=== PATIENT | female | born 2000 | race Caucasian/White ===

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

== ENCOUNTER 2021-06-14 17:10 | Outpatient (CLI) | payer MEDICAID, SELFPAY ==
[2021-06-17 08:09] LABS: Chlamydia By Nucleic Acid AMP Negative (Negative)
[2021-06-17 17:53] LABS: Gonococcus By Nucleic Acid AMP Negative (Negative)
== END 2021-06-14 23:59 | disposition short-term general hospital (02) ==
LOC: LABSPEC 17:11
PROVIDERS: PCP Nurse Practitioner Family; Visit Provider Obstetrics & Gynecology
DX: Z11.3 Encounter for screening for infections with a predominantly sexual mode of transmission (principal)
CPT/HCPCS: 87491; 87591

== ENCOUNTER 2021-06-28 12:00 | Outpatient (CLI) | payer MEDICAID, SELFPAY ==
--- NOTE | 2021-06-28 12:06 | RAD_ITS ---
STUDY: HYSTEROSALPINGOGRAM. REASON FOR EXAM: Female, 20 years old. INFERTILITY FLUOROSCOPY TIME (if supplied): ( 26 seconds ) minutes/seconds. 3 images were obtained. TECHNIQUE: The hysterosalpingogram was performed by the senior sales assistant. Imaging was provided. COMPARISON: None. FINDINGS: The uterus is unremarkable. Both fallopian tubes are widely patent with free spill. RAD/Salpingogram IMPRESSION: The fallopian tubes are widely patent with free spill. Electronically Signed: Luis Angel Renae MD at 14:45 EST ,
== END 2021-06-28 23:59 | disposition home or self-care (01) ==
LOC: RAD 12:05
PROVIDERS: PCP Nurse Practitioner Family; Referring Provider Obstetrics & Gynecology; Visit Provider Obstetrics & Gynecology
DX: Z31.41 Encounter for fertility testing (principal)
CPT/HCPCS: 58340; 74740; Q9967

== ENCOUNTER 2023-04-20 21:34 | Emergency (ER) | payer MEDICAID, SELFPAY ==
[2023-04-20 21:35] VITALS: BP 134/81; PULSE 123; RESP 16; TEMP 36; BMI 27.8
[2023-04-20 21:38] VITALS: BP 134/81; PULSE 123; RESP 16; TEMP 36
--- NOTE | 2023-04-20 22:17 | EDS_ITS ---
HPI HPI - GI History of Present Illness Chief Complaint: Abd Pain Informant: patient Abdominal Pain/Flank Pain Onset: Hours (1-2) Context: Gradual Onset Timing: Continuous Quality: Aching and Sharp Current Severity: Moderate Maximum Severity: Moderate Worsened by: Food Relieved by: Nothing Nausea/Vomiting/Emesis GI Symptom: Negative for Nausea or Vomiting Diarrhea/Melena/Hematochezia GI Symptom: Negative for Diarrhea, Melena or Hematochezia Associated Symptoms Associated Symptoms: Negative for Dysuria, Hematuria or Urgency Narrative Narrative: 22-year-old female states she is around 17 weeks and she was just sitting there when she started getting left upper quadrant pain and came into the hospital right away. She ate first, seem to get a little worse so she stopped eating. No nausea or vomiting. Radiates into her epigastrium not her back or her chest, she denies any pleuritic symptoms, cough recently, fevers or chills, dyspnea or chest discomfort. Normal urination, normal bowel movements recently, no prior abdominal surgeries. No vaginal bleeding. PFSH PFS Medical History Bulimia Depression Home Medications NK 04/20/23 [History Last Taken Unknown] Allergy/AdvReac Type Severity Reaction Status Date / Time sulfamethoxazole Allergy Vomiting Verified 04/20/23 21:34 [From Bactrim] trimethoprim [From Bactrim] Allergy Vomiting Verified 04/20/23 21:34 Social History Smoking Status: Current some day smoker tobacco type: e-cigarettes ROS ROS ED Constitutional Constitutional ED: Denies chills or fever(s) Eyes Eyes: Denies change in vision or diplopia ENT ENT ED: Denies rhinorrhea or sore throat Cardiovascular Cardiovascular: Denies chest pain or palpitations Respiratory/Chest Respiratory/Chest: Denies cough or dyspnea Gastrointestinal Gastrointestinal: Reports abdominal pain; Denies diarrhea, nausea or vomiting Genitourinary Genitourinary ED: Denies dysuria or hematuria Musculoskeletal Musculoskeletal: Denies back pain or neck pain Integumentary Denies abscess or rash Neurologic Neurologic: Denies headache(s), paresthesias or weakness Psychiatric Psychiatric: Denies anxiety or suicidal thoughts EXAM Physical Exam Const Vital Signs: 04/20/23 21:35 04/20/23 21:38 Temperature 96.8 F L 96.8 F L Temperature Source Temporal Temporal Pulse Rate 123 H 123 H Respiratory Rate 16 16 Blood Pressure 134/81 H 134/81 H Blood Pressure Mean 98 98 Positive well nourished and well developed Constitutional Narrative: Well-appearing in no distress General Appearance ED: well developed and NAD HEENT Reports moist mucous membranes normocephalic and atraumatic Eyes PERRL and EOMs intact bilaterally Neck full ROM and supple Resp normal respiratory effort and clear to auscultation bilaterally Cardio regular rate, regular rhythm and no murmurs Cardio Narrative: Mild tachycardia GI non-distended GI Narrative: Mildly tender epigastrium and medial aspect of the left upper quadrant no guarding or rebound tenderness no pulsatile mass no other areas of abdominal tenderness. Mild pelvic distention below the umbilicus compatible with early second trimester Auscultation: normoactive bowel sounds Palpation: soft Back/Spine no CVA tenderness General Back: other FROM Extremity normal to inspection General Extremety ED: Negative for edema, pulses abnormal or tenderness General Extremity: Negative for edema or pulses abnormal Neuro oriented x3, CN's II-XII intact bilaterally and no sensory deficits noted Sensorium / Orientation: awake and alert Motor Exam: strength 5/5 throughout Skin no rashes or lesions noted and no wounds MDM MDM MDM Narrative Medical decision making narrative: Differential includes stomach as well as sigmoid colon etiologies. Given second trimester , acid related issues much more likely. While running blood test she was given Mylanta and a dose of dicyclomine. She states on reevaluation that the discomfort is completely gone she feels much better. The labs are unremarkable. She has a mild leukocytosis which is normal during the stage . Patient reassured, advised she can take Pepcid or Mylanta as needed during safely and follow-up with her doctor as needed. She is comfortable with that plan. Lab Data Attestation: I reviewed the patient's lab results. Labs: Laboratory Results - last 24 hr 04/20/23 22:35 WBC 12.5 H RBC 3.15 L Hgb 9.9 L Hct 28.5 L MCV 90.5 MCH 31.4 MCHC 34.7 RDW Std Deviation 42.5 RDW Coeff of Atilio 13.0 Plt Count 260 MPV 9.5 Immature Gran % (Auto) 0.200 Neut % (Auto) 65.9 Lymph % (Auto) 26.6 [place] % (Auto) 6.5 Eos % (Auto) 0.6 Baso % (Auto) 0.2 Absolute Neuts (auto) 8.2 H Absolute Lymphs (auto) 3.32 Nucleated RBC % 0 Sodium 138 Potassium 3.4 L Chloride 109 H Carbon Dioxide 25.0 Anion Gap 4 L BUN 9 Creatinine 0.45 L Estim Creat Clear Calc 174.96 Est GFR (MDRD) Af Amer 220 Est GFR (MDRD) Non-Af 181 BUN/Creatinine Ratio 19.9 Glucose 95 Calcium 8.3 L Total Bilirubin 0.30 AST 13 L ALT 18 Alkaline Phosphatase 44 L Total Protein 6.2 L Albumin 2.7 L Globulin 3.5 Albumin/Globulin Ratio 0.8 L Lipase 22 Discharge Plan Triage Chief Complaint: Abd Pain ED Provider: Orestes Lee Dx/Rx/DC Orders Clinical Impression: Dyspepsia, Second trimester Instructions: Understanding Functional Dyspepsia Prescriptions: No Action NK Primary Care Provider: Kenya Mitchell NP Referrals: Kenya Mitchell NP, [facility] CRANBERRY-C [Primary Care Provider] - As Needed Activity Restrictions/Additional Instructions: May safely take Pepcid and/or Mylanta during if needed Disposition Disposition: Home, Self Care
[2023-04-20] MEDS: Dicyclomine 10 MG Capsule 20 MG PO (22:33)
[2023-04-20] MEDS: Mag Hydrox/Al Hydrox/Simeth 30 ML UDC PO (22:33)
[2023-04-20 22:40] LABS: Absolute Lymphocyte Count 3.32 X10^3/uL (0.83-4.51); Absolute Neutrophil Count 8.2 X10^3/uL (2.0-7.7); Basophil# 0.03 X10^3/uL; Basophil% 0.2 % (0-1); Eosinophil# 0.07 X10^3/uL; Eosinophils% 0.6 % (0-5); Hematocrit 28.5 % (37-47); Hemoglobin 9.9 g/dL (12.0-15.0); Lymphocyte # 3.32 X10^3/ul (0.83-4.51); Lymphocyte % 26.6 % (19-41); Mean Corp Hgb Conc 34.7 g/dL (32-36); Mean Corpuscular Hgb 31.4 pg (27.0-32.0); Mean Corpuscular Volume 90.5 fL (81-99); Mean Platelet Vol. 9.5 fl (6.2-12.0); Monocyte# 0.81 X10^3/uL; Monocyte% 6.5 % (0-10); NRBC Flagged by Analyzer 0 % (0-5); Neutrophil # 8.23 X10^3/uL (2.7-7.7); Neutrophil % 65.9 % (47-70); Platelet Count 260 K/mm3 (150-450); RBC Distribution Width SD 42.5 fl (35.1-43.9); Red Blood Count 3.15 M/mm3 (4.2-5.4); White Blood Count 12.5 K/mm3 (4.4-11.0)
[2023-04-20 22:56] LABS: ALB/GLOB Ratio 0.8 RATIO (0.9-2.4); AST(SGOT) 13 U/L (15-37); Alanine Aminotransfer ALT/SGPT 18 U/L (13-56); Albumin, Serum 2.7 g/dL (3.2-5.0); Alkaline Phosphatase 44 U/L (45-117); Anion Gap 4 (5-15); BUN 9 mg/dL (7-18); BUN/Creat Ratio 19.9 RATIO (10-20); Calcium,Total 8.3 mg/dL (8.5-10.1); Chloride 109 mmol/L (98-107); Creatinine, Serum 0.45 mg/dL (0.55-1.02); EST Glomerular Filtration Rate 181 mL/min (>60); Est Glom Filt Rate - Afr Amer 220 mL/min (>60); Estimated Creatinine Clearance 174.96 ml/min; Globulin 3.5 g/dL (2.2-4.2); Glucose 95 mg/dL (74-106); Lipase 22 U/L (13-75); Potassium 3.4 mmol/L (3.5-5.1); Protein, Total 6.2 g/dL (6.4-8.2); Sodium Level 138 mmol/L (136-145)
== END 2023-04-20 23:54 | disposition home or self-care (01) ==
PROVIDERS: Emergency Provider Emergency Medicine; PCP Nurse Practitioner Family; Visit Provider Emergency Medicine
DX: O99.891 Other specified diseases and conditions complicating pregnancy (principal); O99.332 Smoking (tobacco) complicating pregnancy, second trimester; F17.290 Nicotine dependence, other tobacco product, uncomplicated; Z3A.17 17 weeks gestation of pregnancy; R10.13 Epigastric pain
CPT/HCPCS: 80053; 83690; 85025; 99283

== ENCOUNTER 2023-06-29 14:09 | Emergency (ER) | payer OTHER, MEDICAID, SELFPAY ==
[2023-06-29 14:11] VITALS: BP 136/81; PULSE 105; RESP 18; TEMP 36.5; O2SAT 99; BMI 28.8
--- NOTE | 2023-06-29 14:29 | US_ITS ---
STUDY: RENAL ULTRASOUND - COMPLETE REASON FOR EXAM: Female, 22 years old. hematuria, left flank pain, TECHNIQUE: Ultrasound evaluation of the kidneys was performed with real-time and static manning-scale imaging. COMPARISON: None. FINDINGS: RIGHT KIDNEY: Normal location of the right kidney, which is normal in size. The right kidney measures 10.4 cm. There is a normal cortex of the right kidney. The renal cortex measures 2 cm. There is no right renal mass or cyst. There are no right renal calculi. Moderate hydronephrosis. DISTAL RIGHT URETER: There is non-visualization of the distal right ureter. There is no demonstrated right ureterovesical junction calculus. There is a visualized right ureteral jet. LEFT KIDNEY: Normal location of the left kidney, which is normal in size. The left kidney measures 11.9 cm. There is a normal cortex of the left kidney. The renal cortex measures 2.7 cm. There is no left renal mass or cyst. There are no left renal calculi. There is no left hydronephrosis. DISTAL LEFT URETER: There is non-visualization of the distal left ureter. There is no demonstrated left ureterovesical junction calculus. There is a visualized left ureteral jet. BLADDER: The distended urinary bladder has a volume of 265 ml. There is a normal wall thickness of the distended urinary bladder. There is no demonstrated mass within the urinary bladder. There are no demonstrated bladder calculi. US/Kidney and Bladder IMPRESSION: Moderate left greater than right hydronephrosis Electronically Signed: Isacc Vinson MD at 16:45 EST ,
--- NOTE | 2023-06-29 14:47 | EDS_ITS ---
HPI History of Present Illness Chief Complaint: Complaint Informant: patient Narrative Narrative: Patient is 27 weeks , states yesterday she was having some mild lower diffuse abdominal cramping/aching and then a small amount of hematuria but no other urinary symptoms. Overnight she started having sudden onset of pain in her left flank and low back. She was seen at her [facility] [facility] [facility] today and started on Macrobid and Azo. She took the Azo and states she had temporary relief of her pain but then it came back less than an hour after taking it and has been very severe ever since and somewhat colicky. Some nausea but no vomiting. No fevers or chills. [facility] Medical History Bulimia Depression Home Medications hydrocodone-acetaminophen 5-325mg 5mg-325mg 1 tab PO Q6H PRN PRN Pain 4 days #16 TABLETS 06/29/23 [Rx Last Taken Unknown] Allergy/AdvReac Type Severity Reaction Status Date / Time sulfamethoxazole Allergy Vomiting Verified 06/29/23 14:11 [From Bactrim] trimethoprim [From Bactrim] Allergy Vomiting Verified 06/29/23 14:11 Social History Smoking Status: Current some day smoker tobacco type: e-cigarettes ROS ROS ED Constitutional Constitutional ED: Denies chills or fever(s) Eyes Eyes: Denies change in vision or diplopia ENT ENT ED: Denies rhinorrhea or sore throat Cardiovascular Cardiovascular: Denies chest pain or palpitations Respiratory/Chest Respiratory/Chest: Denies cough or dyspnea Gastrointestinal Gastrointestinal: Reports abdominal pain and nausea; Denies diarrhea or vomiting Genitourinary Genitourinary ED: Reports hematuria; Denies dysuria, urinary frequency or urinary urgency Musculoskeletal Musculoskeletal: Reports back pain; Denies neck pain Integumentary Denies abscess or rash Neurologic Neurologic: Denies headache(s), paresthesias or weakness Psychiatric Psychiatric: Denies anxiety or suicidal thoughts EXAM Physical Exam Const Vital Signs: 06/29/23 14:11 Temperature 97.7 F L Temperature Source Temporal Pulse Rate 105 H Respiratory Rate 18 Blood Pressure 136/81 H Blood Pressure Mean 99 Pulse Ox 99 Oxygen Delivery Method Room Air Positive well nourished and well developed General Appearance ED: well developed and NAD HEENT Reports moist mucous membranes normocephalic and atraumatic Eyes PERRL and EOMs intact bilaterally Neck full ROM and supple Resp normal respiratory effort and clear to auscultation bilaterally Cardio regular rate, regular rhythm and no murmurs GI non-distended GI Narrative: Mild diffuse pelvic tenderness. Abdomen distended above the umbilicus consistent with early third trimester . This area of her abdomen is benign and nontender. There is no guarding or rebound tenderness even in the pelvis. Auscultation: normoactive bowel sounds Palpation: soft Back/Spine no CVA tenderness General Back: other FROM Extremity normal to inspection General Extremety ED: Negative for edema, pulses abnormal or tenderness General Extremity: Negative for edema or pulses abnormal Neuro oriented x3, CN's II-XII intact bilaterally and no sensory deficits noted Sensorium / Orientation: awake and alert Motor Exam: strength 5/5 throughout Psych Mood & Affect: anxious Skin no rashes or lesions noted and no wounds MDM MDM MDM Narrative Medical decision making narrative: Her urine is bright orange, consistent with someone who just took Pyridium. We discussed medications to treat her symptoms she was okay with IV fluids, Zofran, morphine. We discussed the pros and cons of that which I think are minimal. Labs and an ultrasound of the bladder and kidneys was obtained. Differential includes infection as well as stone. Patient did feel better after the medications. She is a leukocytosis and normal renal function, I reviewed the ultrasound images and the result which I agree with, consistent with hydronephrosis on the left. Differential still includes infection and stone. I was not able to get an accurate urinalysis here, since patient already had a urinalysis as an outpatient and was placed on Azo and her urine is orange, and a culture is already sent. Discussed with Manjula Corea who is on-call for [facility] who the patient actually saw today. She said that the urinalysis they did showed some protein, large blood, and was otherwise negative. They sent it for culture. Given this, I am more consistent for a kidney stone that I am for pyelonephritis. I discussed with Dr. Wyman was on- call for urology. She agrees, and recommends patient follow-up with her for at least a repeat ultrasound of the kidneys even if her pain resolves. In meantime sending her home with a prescription for pain medication which I am advising her to use as sparingly as possible, she can use Tylenol in addition given appropr iate instructions there as well as for straining her urine. I would continue the Macrobid since she already started it but I would not necessarily change it. She was empirically already given Rocephin here prior to knowing that she had a negative urinalysis. Lab Data Attestation: I reviewed the patient's lab results. Labs: Laboratory Results - last 24 hr 06/29/23 15:00 WBC 15.1 H RBC 3.41 L Hgb 10.4 L Hct 31.2 L MCV 91.5 MCH 30.5 MCHC 33.3 RDW Std Deviation 41.3 RDW Coeff of Atilio 12.5 Plt Count 289 MPV 9.3 Immature Gran % (Auto) 0.500 Neut % (Auto) 76.5 H Lymph % (Auto) 16.2 L [place] % (Auto) 6.1 Eos % (Auto) 0.5 Baso % (Auto) 0.2 Absolute Neuts (auto) 11.5 H Absolute Lymphs (auto) 2.44 Nucleated RBC % 0 Sodium 139 Potassium 3.3 L Chloride 111 H Carbon Dioxide 22.0 Anion Gap 6 BUN 11 Creatinine 0.53 L Estim Creat Clear Calc 171.22 Est GFR (MDRD) Af Amer 183 Est GFR (MDRD) Non-Af 151 BUN/Creatinine Ratio 20.8 H Glucose 96 Calcium 8.3 L Radiography Diagnostic Testing: Clinical Impression(s) from Imaging Studies Renal Ultrasound 06/29/23 14:29 IMPRESSION: Moderate left greater than right hydronephrosis Electronically Signed: Isacc Vinson MD at 16:45 EST , Management Discussion w/another healthcare provider: Pillow Filler ([employer], urology) Discharge Plan Triage Chief Complaint: Complaint ED Provider: Orestes Lee Dx/Rx/DC Orders Clinical Impression: Microscopic hematuria, Third trimester , Renal colic on left side Instructions: ED Kidney Stone with Pain Prescriptions: New hydrocodone-acetaminophen [hydrocodone-acetaminophen] 5-325 mg tablet 1 tab PO Q6H PRN PRN (Reason: Pain) 4 Days Qty: 16 0RF Primary Care Provider: Kenya Mitchell NP Referrals: Dennise Infante MD [Med Staff - Active Staff] - 1-2 Weeks Kenya Mitchell NP, [employer] [Primary Care Provider] - Activity Restrictions/Additional Instructions: You may use the hydrocodone/acetaminophen or plain acetaminophen, but watch the dosing and make sure you do not take more than 4000 mg of acetaminophen in each 24-hour period. Avoid ibuprofen given your stage of . Disposition Disposition: Home, Self Care
[2023-06-29] MEDS: Morphine 4 MG/ML Syringe IV (14:48)
[2023-06-29] MEDS: 0.9% Normal Saline (1000mL) 1,000 ML 1000 ML IV (14:48)
[2023-06-29] MEDS: Ondansetron 4 MG/2 ML Vial IV (14:48)
[2023-06-29 15:13] LABS: Absolute Lymphocyte Count 2.44 X10^3/uL (0.83-4.51); Absolute Neutrophil Count 11.5 X10^3/uL (2.0-7.7); Basophil# 0.03 X10^3/uL; Basophil% 0.2 % (0-1); Eosinophil# 0.08 X10^3/uL; Eosinophils% 0.5 % (0-5); Hematocrit 31.2 % (37-47); Hemoglobin 10.4 g/dL (12.0-15.0); Lymphocyte # 2.44 X10^3/ul (0.83-4.51); Lymphocyte % 16.2 % (19-41); Mean Corp Hgb Conc 33.3 g/dL (32-36); Mean Corpuscular Hgb 30.5 pg (27.0-32.0); Mean Corpuscular Volume 91.5 fL (81-99); Mean Platelet Vol. 9.3 fl (6.2-12.0); Monocyte# 0.92 X10^3/uL; Monocyte% 6.1 % (0-10); NRBC Flagged by Analyzer 0 % (0-5); Neutrophil # 11.52 X10^3/uL (2.7-7.7); Neutrophil % 76.5 % (47-70); Platelet Count 289 K/mm3 (150-450); RBC Distribution Width CV 12.5 % (11.6-14.6); RBC Distribution Width SD 41.3 fl (35.1-43.9); Red Blood Count 3.41 M/mm3 (4.2-5.4); White Blood Count 15.1 K/mm3 (4.4-11.0)
[2023-06-29 15:29] LABS: Anion Gap 6 (5-15); BUN 11 mg/dL (7-18); BUN/Creat Ratio 20.8 RATIO (10-20); Calcium,Total 8.3 mg/dL (8.5-10.1); Chloride 111 mmol/L (98-107); Creatinine, Serum 0.53 mg/dL (0.55-1.02); EST Glomerular Filtration Rate 151 mL/min (>60); Est Glom Filt Rate - Afr Amer 183 mL/min (>60); Estimated Creatinine Clearance 171.22 ml/min; Glucose 96 mg/dL (74-106); Potassium 3.3 mmol/L (3.5-5.1); Sodium Level 139 mmol/L (136-145)
[2023-06-29 17:00] VITALS: RESP 18
--- OUTSIDE RECORDS SUMMARY | 2023-06-29 17:18 | XMS RPT_ITS | CCD ---
Author Name Unknown Address [address] [place] [address] Organization [facility] Care Team Providers Care Team Physician Name Role Phone TAWANA STINSON Unavailable Unavailable REFERRED, SELF Unavailable Unavailable NO PRIMARY CARE, MD Unavailable Unavailable TEE JEFFREY Unavailable Unavailable NO PRIMARY CARE, Unavailable Unavailable NO PRIMARY CARE, MD Unavailable Unavailable Unavailable Primary Care Provider Unavailabl e KENYA MITCHELL CNP Consulting Unavailable BENNIE COLLIER Admitting Unavailable BENNIE COLLIER Primary Care Unavailable BENNIE COLLIER Attending Unavailable KENYA MITCHELL CNP Referring Unavailable PROVIDER, UNKNOWN Consulting Unavailable PROVIDER, UNKNOWN Consulting Unavailable KENYA MITCHELL CNP Consulting Unavailable KENYA MITCHELL CNP Attending Unavailable KENYA MITCHELL CNP Admitting Unavailable KENYA MITCHELL CNP Primary Care Unavailable PROVIDER, UNKNOWN Consulting Unavailable PROVIDER, UNKNOWN Consulting Unavailable KENYA MITCHELL CNP Consulting Unavailable KENYA MITCHELL CNP Attending Unavailable KENYA MITCHELL CNP Admitting Unavailable KENYA MITCHELL CNP Primary Care Unavailable PROVIDER, UNKNOWN Consulting Unavailable PROVIDER, UNKNOWN Consulting Unavailable KENYA MITCHELL CNP Consulting Unavailable JENNIFER REINA MD Admitting Unavailable JENNIFER REINA MD Primary Care Unavailable JENNIFER REINA MD Attending Unavailable KENYA MITCHELL CNP Referring Unavailable PROVIDER, UNKNOWN Consulting Unavailable PROVIDER, UNKNOWN Consulting Unavailable KENYA MITCHELL CNP Consulting Unavailable BENNIE COLLIER Admitting Unavailable LORI COLLIERN Gale Primary Care Unavailable LORI COLLIERN Gale Attending Unavailable KENYA MITCHELL CNP Referring Unavailable PROVIDER, UNKNOWN Consulting Unavailable PROVIDER, UNKNOWN Consulting Unavailable WAYNE GREER Attending Unavailable WAYNE GREER Attending Unavailable WAYNE GREER Attending Unavailable DEAN PATTERSON Referring Unavailable DEAN PATTERSON Attending Unavailable WAYNE GREER Attending Unavailable WAYNE GREER Referring Unavailable KAELYN RAMOS Referring Unavailable WAYNE GREER Attending Unavailable DEAN PATTERSON Attending Unavailable DEAN PATTERSON Attending Unavailable WAYNE GREER Referring Unavailable DEAN PATTERSON Attending Unavailable WAYNE GREER Referring Unavailable DEAN PATTERSON Referring Unavailable WAYNE GREER Attending Unavailable WAYNE GREER Referring Unavailable WAYNE GREER Attending Unavailable WAYNE GREER Attending Unavailable DEAN PATTERSON Attending Unavailable Allergies Allergy Classification Reported Allergen(s) Allergy Type Date of Onset Reaction(s) Facility (20 sources) sulfamethoxazole / trimethoprim; Translations: [SULFAMETHOXAZOLE-TR IMETHOPRIM] Drug Allergy 8 [facility] Repository (19 sources) pork allergenic extract; Translations: [PORK DERIVED (PORCINE)] Drug Allergy 3 [facility] Work Phone: (19 sources) Lavender; Translations: [LAVENDER] Drug Allergy 3 [facility] Work Phone: (1 source) Sulfamethoxazole / Trimethoprim Drug Allergy [facility] Repository Medications Current Medications Medication Drug Class(es) Dates Sig (Normalized) Sig (Original) doxycycline monohydrate 100 mg oral capsule (2 sources) Tetracycline-cla ss Drug Start: 11-17-2022 End: 11-17-2022 take 2 capsules by mouth once doxycycline monohydrate (MONODOX) 100 mg capsule Indications: Incomplete spontaneous without complication Take 2 capsules by mouth one time only for 1 dose. 2 capsule 0 11/17/2022 11/17/2022 Active Completed/Discontinued Medications Medication Drug Class(es) Dates Sig (Normalized) Sig (Original) acetaminophen 500 mg oral tablet (3 sources) Start: 07-28-2022 End: 11-09-2022 take 2 tablets by mouth every six hours as needed acetaminophen (TYLENOL EXTRA STRENGTH) 500 mg tablet Take 2 tablets by mouth every 6 hours as needed for pain. FOR PAIN. 60 tablet 1 07/28/2022 11/09/2022 Discontinued Problems Active Problems Problem Classification Problem Date Documented Date Episodic/Chronic Allergic reactions (1 source) Allergy status to other drugs, medicaments and biological substances status; Translations: [Allergy status to other drugs, medicaments and biological substances] Onset: 11-11-2022 Episodic Fluid and electrolyte disorders (1 source) Hypokalemia; Translations: [Hypokalemia] Onset: 11-11-2022 Episodic Other complications of (3 sources) Missed miscarriage; Translations: [Missed ] Episodic Other complications of (9 sources) H/O: miscarriage; Translations: [Supervision of with other poor reproductive or obstetric history, unspecified trimester] Onset: 11-09-2022 Episodic Other complications of (2 sources) Recurrent miscarriage; Translations: [ care for patient with recurrent loss, unspecified trimester] 02-26-2023 Episodic Other complications of (1 source) RhD negative; Translations: [Other specified related conditions, unspecified trimester] Onset: 03-27-2023 03-27-2023 Episodic Other and delivery including normal (2 sources) Normal ; Translations: [Encounter for supervision of other normal , first trimester] Onset: 05-03-2023 03-26-2023 Episodic Other screening for suspected conditions (not mental disorders or infectious disease) (4 sources) Patient encounter status; Translations: [Encounter for screening, unspecified] Onset: 03-26-2023 03-26-2023 Episodic Previous (20 sources) ; Translations: [Maternal care for unspecified type scar from previous delivery] Onset: 07-06-2022 Episodic Residual codes; unclassified (1 source) Gestation period, 8 weeks; Translations: [8 weeks gestation of ] Episodic Residual codes; unclassified (2 sources) Gestation period, 7 weeks; Translations: [Less than 8 weeks gestation of ] Episodic Residual codes; unclassified (1 source) Less than 8 weeks gestation of ; Translations: [Less than 8 weeks gestation of ] Onset: 11-11-2022 Episodic Residual codes; unclassified (1 source) Personal history of other complications of , childbirth and the puerperium; Translations: [Personal history of other complications of , childbirth and the puerperium] Onset: 2022 Episodic Residual codes; unclassified (1 source) Gestation period, 13 weeks; Translations: [13 weeks gestation of ] 03-26-2023 Episodic Residual codes; unclassified (1 source) Gestation period, 18 weeks; Translations: [18 weeks gestation of ] 05-03-2023 Episodic Residual codes; unclassified (1 source) 13 weeks gestation of ; Translations: [13 weeks gestation of ] Onset: 03-26-2023 Episodic Past or Other Problems Problem Classification Problem Date Documented Da te Episodic/Chronic Hemorrhage during ; abruptio placenta; placenta previa (9 sources) Antepartum hemorrhage; Translations: [Hemorrhage in early , unspecified] Onset: 2022 Episodic Other complications of (1 source) care for patient with recurrent loss, unspecified trimester; Translations: [Previous recurrent miscarriages affecting , antepartum] Onset: 02-26-2023 Episodic Other complications of (1 source) with inconclusive viability, not applicable or unspecified; Translations: [ with inconclusive viability, single or unspecified fetus] Onset: 07-07-2022 Episodic Residual codes; unclassified (20 sources) History of clinical finding in subject; Translations: [Personal history of other specified conditions] Onset: 07-06-2022 Episodic Screening and history of mental health and substance abuse codes (20 sources) H/O: depression; Translations: [Personal history of other mental and behavioral disorders] Onset: 07-06-2022 Episodic Spontaneous (7 sources) with abortive outcome; Translations: [Incomplete spontaneous without complication] Onset: 07-17-2022 Episodic Results Test Name Value Interpretation Reference Range Facil ity Vital Signs Date Time Vital Sign Value Performing Clinician Brad hawthorne 05-03-2023 13:53-0500 Body weight 74.39 kg Ob Ultrasound Work Phone: [facility] 03-26-2023 14:27-0500 Body weight 72.58 kg Dean Patterson MD Work Phone: [facility] 03-26-2023 14:27-0500 Diastolic blood pressure 60 mm[Hg] Dean Patterson MD Work Phone: [facility] 03-26-2023 14:27-0500 Systolic blood pressure 100 mm[Hg] Dean Patterson MD Work Phone: [facility] 03-06-2023 11:18-0400 Body height 165.1 cm Wayne Greer MD Work Phone: [facility] 03-06-2023 11:18-0400 Body weight 70.58 kg Wayne Greer MD Work Phone: [facility] 03-06-2023 11:18-0400 Diastolic blood pressure 62 mm[Hg] Wayne Greer MD Work Phone: [facility] 03-06-2023 11:18-0400 Systolic blood pressure 100 mm[Hg] Wayne Greer MD Work Phone: [facility] 12-01-2022 10:40-0400 Body weight 70.31 kg Dean Patterson MD Work Phone: [facility] 12-01-2022 10:40-0400 Diastolic blood pressure 70 mm[Hg] Dean Patterson MD Work Phone: [facility] 12-01-2022 10:40-0400 Systolic blood pressure 108 mm[Hg] Dean Patterson MD Work Phone: [facility] 11-20-2022 08:44-0400 Body weight 70.76 kg Dean Patterson MD Work Phone: [facility] 11-20-2022 08:44-0400 Diastolic blood pressure 70 mm[Hg] Dean Patterson MD Work Phone: [facility] 11-20-2022 08:44-0400 Heart rate 80 /min Dean Patterson MD Work Phone: [facility] 11-20-2022 08:44-0400 Respiratory rate 16 /min Dean Patterson MD Work Phone: [facility] 11-20-2022 08:44-0400 SaO2% (BldA) [Mass fraction] 100 % Dean Patterson MD Work Phone: [facility] 11-20-2022 08:44-0400 Systolic blood pressure 100 mm[Hg] Dean Patterson MD Work Phone: [facility] 11-14-2022 15:30-0400 Body weight 70.76 kg Wayne Greer MD Work Phone: [facility] 11-14-2022 15:30-0400 Diastolic blood pressure 74 mm[Hg] Wayne Greer MD Work Phone: [facility] 11-14-2022 15:30-0400 Systolic blood pressure 122 mm[Hg] Wayne Greer MD Work Phone: [facility] 07-28-2022 16:25-0500 Diastolic blood pressure 64 mm[Hg] Wayne Greer MD Work Phone: [facility] 07-28-2022 16:25-0500 Heart rate 70 /min Wayne Greer MD Work Phone: [facility] 07-28-2022 16:25-0500 Respiratory rate 16 /min Wayne Greer MD Work Phone: [facility] 07-28-2022 16:25-0500 SaO2% (BldA) [Mass fraction] 98 % Wayne Greer MD Work Phone: [facility] 07-28-2022 16:25-0500 Systolic blood pressure 98 mm[Hg] Wayne Greer MD Work Phone: [facility] 07-28-2022 13:11-0500 Body weight 70.03 kg Wayne Greer MD Work Phone: [facility] 07-17-2022 14:16-0500 Body weight 70.31 kg Wayne Greer MD Work Phone: [facility] 07-17-2022 14:16-0500 Diastolic blood pressure 72 mm[Hg] Wayne Greer MD Work Phone: [facility] 07-17-2022 14:16-0500 Systolic blood pressure 118 mm[Hg] Wayne Greer MD Work Phone: [facility] 07-11-2022 14:45-0500 Body weight 70.49 kg Wayne Greer MD Work Phone: [facility] 07-11-2022 14:45-0500 Diastolic blood pressure 62 mm[Hg] Wayne Greer MD Work Phone: [facility] 07-11-2022 14:45-0500 Systolic blood pressure 114 mm[Hg] Wayne Greer MD Work Phone: [facility] 07-07-2022 [id number] Body height 165.1 cm Wayne Greer MD Work Phone: [facility] 07-07-2022 [id number] Body weight 68.67 kg Wayne Greer MD Work Phone: [facility] 07-07-2022 14:11-0500 Diastolic blood pressure 60 mm[Hg] Wayne Greer MD Work Phone: [facility] 07-07-2022 14:11-0500 Systolic blood pressure 102 mm[Hg] Wayne Greer MD Work Phone: [facility] Encounters Encounter Date Encounter Type Care Provider Facility Start: 05-31-2023 End: 05-31-2023 ambulatory DEAN PATTERSON Facility:[facility] Start: 05-03-2023 End: 05-03-2023 ambulatory DEAN PATTERSON Facility:[facility] Start: 05-03-2023 End: 05-03-2023 Patient 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 Jessica Ultrasound Work Phone: OB/Gynecology Procedures Date Procedure Procedure Detail Performing Clinician Start: 05-03-2023 Us preg uterus after 1st trimest 05/21 gestation Dean Patterson MD Work Phone: Start: 03-26-2023 Antibody screen WAYNE GREER Plan of Treatment Date Care Activity Detail Author Start: 07-07-2025 PAP TESTING PAP TESTING [facility] Start: 07-07-2025 Screening for malign ant neoplasm of cervix Pap Testing [facility] Start: 08-31-2024 Urine microalbumin profile DTaP,Tdap,Td Vaccine (7 - Td or Tdap) [facility] Start: 03-06-2024 Chlamydia Screening (18-24) Chlamydia Screening (18-24) [facility] Start: 03-06-2024 GC (Gonorrhea) Scree leyla (18-24) GC (Gonorrhea) Screening (18-24) [facility] Start: 03-06-2024 Screening for Chlamy nancy trachomatis Chlamydia Screening (18) [facility] Start: 03-26-2023 End: 06-25-2023 Chromosome 21 trisomy [Presence] in Blood or Tissue by Cytogen[employer] [facility] Work Phone: Immunizations Immunization Date Immunization Notes Care Provider Delmi salcedo 04-24-2009 influenza virus vacc ine, unspecified formulation Nurse Wstr Work Phone: [facility] 03-15-2005 diphtheria, tetanus toxoids and acellular pertussis vaccine Nurse Wstr Work Phone: [facility] 03-15-2005 measles, mumps and rubella virus vaccine Nurse Wstr Work Phone: [facility] 03-15-2005 poliovirus vaccine, inactivated Nurse Wstr Work Phone: [facility] Payers Date Payer Category Payer Unknown MMO MMO [employer] PPO [id number] 2022-Present [phone] [address] [place] [address] PPO [id number] 2022 Unknown [id number] 2022 Medicaid [id number] 2019 Medicaid [id number] 2019 Unknown [id number] 1999 Unknown [id number] 1999 Unknown [id number] 1999 Unknown [id number] Social History Date Type Detail Facility Start: 07-06-2022 End: 02-26-2023 Tobacco smoking status NHIS Ex-smoker [facility] Work Phone: End: 01-23-2023 History of tobacco use Current smoker [facility] Work Phone: End: 01-23-2023 History of tobacco use Cigarette Smoker [facility] Work Phone: Start: 07-06-2022 End: 02-26-2023 Tobacco use and exposure Smokeless tobacco non-user [facility] Work Phone: Start: 07-06-2022 End: 05-03-2023 Alcohol intake Ex-drinker (finding) [facility] Start: 07-06-2022 Education 15 [facility] Start: 07-06-2022 Alcohol Comment Occasionally [facility] Start: 05-24-2022 [facility] Start: 2000 Sex Assigned At Not on file [facility] Start: 11-09-2022 End: 12-01-2022 History of Social function [facility] Start: 11-09-2022 End: 12-01-2022 Tobacco use panel [facility] National Score (1-100), lower number is lower risk 99 [facility] Goals Date Patient Goal Desired Activity /State Personal health goal Clinical Notes 07-06-2022 to 03-26-2023 Quick Notes - Dean Patterson MD - 03/26/2023 2:40 PM ESTPatient InstructionsPatient Wayne Carey MD - 03/06/2023 11:10 AM LILLIANTClary Dailey RN - 02/26/2023 6:49 AM EDT Note Date & Type Note Facility 03-26-2023 Miscellaneous Notes Formattin g of this note might be different from the original. RR- VB No. LOF No. CTXS No. Movement: present. Other c/o: No. Medication list reviewed. Physical Exam See Flow Sheet Abd: soft, nontender, gravid Ext: edema: Trace A/P 13w2d Estimated Date of Delivery: 09/29/23 Labs: d/w her aneuploidy screening as screen only. She desires nIPT anatomy US ordered other PN labs today. Dean Patterson M.D. documented in this encounter [facility] 03-26-2023 Instructions Juany Aguilar Ma - 03/26/2023 2:26 PM EST SEQUENTIAL SCREENINGS The [facility] offers sequential screenings for women who are interested in screenings for chromosomal abnormalities and certain defects during a . The sequential screen combines ultrasound and blood tests to determine the risk of chromosomal abnormalities, including Down's Syndrome (Trisomy 21) and Trisomy 18, as well as open neural tube defects including spina bifida. Ultrasound examination is performed between 11 weeks and 13 weeks gestational age. Blood tests are drawn after the ultrasound and again later in the between 15 and 21 weeks gestational age. Please let your physician know if you are interested in this testing. It will require an appointment with our senior health physics technician. This is not an ultrasound performed by a physician in our office during a routine visit. SIGNS AND SYMPTOMS OF LABOR 1. Contractions every 10 minutes or more often 2. Clear, pink, or brownish fluid (water) leaking from vagina 3. Feeling that baby is pushing down, pressure 4. Low, dull backache 5. Cramps that feel like a period 6. Cramps with or without diarrhea If you notice any of the above symptoms, contact our office at [phone] and ask to speak with a nurse. After hours, you can call doctors registry at [phone] OR call [facility] at [phone] and ask to have the doctor salon manager paged. If you consider this an emergency, dial [phone] or go to your nearest emergency department. NEED HELP? Are you dealing with a violent or abusive relationship? Are you a victim of rape or sexual assult? Call [facility] ([place]) 24 hour Crisis Hotline: 152.416.1114 or 162-566-6745. MANUAL Your Guide to a Healthy manual is now on-line. Visit [email or web address]/[email or web address] [email or web address] to download your free copy documented in this encounter [facility] 03-06-2023 Note HNO ID: [id number] Author: Wayne Greer MD Service: ? Author Type: Physician Type: Progress Notes Filed: 03/06/2023 3:01 PM Note Text: Machine Umbrella Tipper offered: Patient declines. INITIAL OB ASSESSMENT OB Provider: Wayne Greer MD HPI: Caleb is a 22 year old White here to establish Obstetrical Care. Patient's last menstrual period was 11/15/2022 (approximate). from OB Dating Form. Cycles No menses since I Pass was unplanned but accepted-had wanted to wait more time after IPAS/miscarriage Complaints: None OB History T1 L1 SAB2 IAB0 Ectopic0 Multiple0 Live Births1 # 1 - Date: 07/03/18, Sex: Female, Weight: 7 lb 8 oz (3.402 kg), GA: 39w0d, Delivery: , Low Transverse, Apgar1: None, Apgar5: None, Living: Living, Comments: distress,500cc # 2 - Date: 07/07/22, Sex: None, Weight: None, GA: 6w4d, Delivery: MISSED AB, Apgar1: None, Apgar5: None, Living: None, Comments: in office IPAS on 07/28/22 # 3 - Date: 11/14/22, Sex: None, Weight: None, GA: 7w0d, Delivery: MISSED AB, Apgar1: None, Apgar5: None, Living: None, Comments: in office IPAS on 11/20/22 # 4 - Date: None, Sex: None, Weight: None, GA: None, Delivery: None, Apgar1: None, Apgar5: None, Living: None, Comments: None Previous history: Prior : yes x 1 History of 4th degree laceration: No History of shoulder dystocia: No History of Hypertensive disorders including pre-eclampsia, chronic hypertension or gestational hypertension: No History of gestational diabetes: No Patient's Risk Screening for delivery: Have you had a prior myers between 20w and 36w6d?: No MEDICAL/PSYCHOSOCIAL HISTORY: History of hemorrhage or bleeding concerns: No Thyroid Disease: No History of chronic hypertension: No History of pre-existing diabetes: No No results found for: ABORHD No weight on file for this encounter. History of abnormal pap: No Prior treatment for cervical dysplasia: none. History of STDs: None Tobacco use: Yes, vaping Caffeine use: Yes 1 cup a day of coffee Drug use: No Alcohol use: No Multivitamin with Folic acid: Yes Muslim or heritage: No Would refuse blood transfusion if medically necessary: No Are you currently employed? Yes, Occupation: [employer] Do you have any history of depression, anxiety, PTSD, eating disorders or other mood problems: Yes Do you have any safety concerns or history of traumatic events that you would like to discuss with your provider: No SDOH Screening: How often does this describe you? I don't have enough money to pay my bills: Never Within the past 12 months, have you worried that your food would run out before you had money to buy more: Never In the past 12 months, has lack of reliable transportation kept you from going to medical appointments or work, or from keeping things needed for daily living: Never In the past 12 months, have you had any concerns about having a place to live, or about the condition or quality of your housing: Never Are there any cultural or spiritual needs we should be aware of: No Depression/Anxiety Screening: denies symptoms of depression. OB Depression and Anxiety Screening- This Encounter (since 02/25/2023) None Genetic Screening: Partner present: No Patient verbalized knowledge of partner family health history: No Do you or your partner have any personal or family history of defects not previously discussed: No Do you have history of a complicated by anomaly, genetic condition, or demise: No OB Depression and Anxiety Screening- This Encounter (since 03/05/2023) None ACOG Recommended Screening Screening for early gestational diabetes testing: Criteria for early testing requires elevated BMI plus one other risk factor: BMI 25.89 kg/(m2) (risk factor if > than 25 or 23 in Americans) Additional risk factors: None She does not meet ACOG criteria for early gestational DM screening. 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 [facility] 03-06-2023 Instructions Eulalia Jasso MA - 03/06/2023 11:11 AM EDT Please select the following link to access the [facility] [facility] Your Guide to a Healthy . [email or web address] documented in this encounter [facility] 03-06-2023 History of Presen t illness Narrative Machine Umbrella Tipper offered: Patient declines. INITIAL OB ASSESSMENT OB Provider: Wayne Greer MD HPI: Caleb is a 22 year old White here to establish Obstetrical Care. Patient's last menstrual period was 11/15/2022 (approximate). from OB Dating Form. Cycles No menses since I Pass was unplanned but accepted-had wanted to wait more time after IPAS/miscarriage Complaints: None OB History T1 L1 SAB2 IAB0 Ectopic0 Multiple0 Live Births1 # 1 - Date: 07/03/18, Sex: Female, Weight: 7 lb 8 oz (3.402 kg), GA: 39w0d, Delivery: , Low Transverse, Apgar1: None, Apgar5: None, Living: Living, Comments: distress,500cc # 2 - Date: 07/07/22, Sex: None, Weight: None, GA: 6w4d, Delivery: MISSED AB, Apgar1: None, Apgar5: None, Living: None, Comments: in office IPAS on 07/28/22 # 3 - Date: 11/14/22, Sex: None, Weight: None, GA: 7w0d, Delivery: MISSED AB, Apgar1: None, Apgar5: None, Living: None, Comments: in office IPAS on 11/20/22 # 4 - Date: None, Sex: None, Weight: None, GA: None, Delivery: None, Apgar1: None, Apgar5: None, Living: None, Comments: None Previous history: Prior : yes x 1 History of 4th degree laceration: No History of shoulder dystocia: No History of Hypertensive disorders including pre-eclampsia, chronic hypertension or gestational hypertension: No History of gestational diabetes: No Patient's Risk Screening for delivery: Have you had a prior myers between 20w and 36w6d?: No MEDICAL/PSYCHOSOCIAL HISTORY: History of hemorrhage or bleeding concerns: No Thyroid Disease: No History of chronic hypertension: No History of pre-existing diabetes: No No results found for: ABORHD No weight on file for this encounter. History of abnormal pap: No Prior treatment for cervical dysplasia: none. History of STDs: None Tobacco use: Yes, vaping Caffeine use: Yes 1 cup a day of coffee Drug use: No Alcohol use: No Multivitamin with Folic acid: Yes Muslim or heritage: No Would refuse blood transfusion if medically necessary: No Are you currently employed? Yes, Occupation: [employer] Do you have any history of depression, anxiety, PTSD, eating disorders or other mood problems: Yes Do you have any safety concerns or history of traumatic events that you would like to discuss with your provider: No SDOH Screening: How often does this describe you? I don't have enough money to pay my bills: Never Within the past 12 months, have you worried that your food would run out before you had money to buy more: Never In the past 12 months, has lack of reliable transportation kept you from going to medical appointments or work, or from keeping things needed for daily living: Never In the past 12 months, have you had any concerns about having a place to live, or about the condition or quality of your housing: Never Are there any cultural or spiritual needs we should be aware of: No Depression/Anxiety Screening: denies symptoms of depression. OB Depression and Anxiety Screening- This Encounter (since 02/25/2023) None Genetic Screening: Partner present: No Patient verbalized knowledge of partner family health history: No Do you or your partner have any personal or family history of defects not previously discussed: No Do you have history of a complicated by anomaly, genetic condition, or demise: No OB Depression and Anxiety Screening- This Encounter (since 03/05/2023) None ACOG Recommended Screening Screening for early gestational diabetes testing: Criteria for early testing requires elevated BMI plus one other risk factor: BMI 25.89 kg/(m^2) (risk factor if > than 25 or 23 in Americans) Additional risk factors: None She does not meet ACOG criteria for early gestational DM screening. 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 prental multivitamin 27 mg iron- 800 mcg tablet Take 1 tablet by mouth once daily. 30 tablet 12 No current facility-administered medications for this visit. Allergies As of Date: 03/06/2023 Allergen Noted Reaction BACTRIM [SULFAMETHOXAZOLE-TRIMETH*06/21 Hives LAVENDER 07/06/2022 Hives PORK DERIVED (PORCINE) 07/06/2022 Hives Fully Assessed 03/06/2023 Does patient have penicillin allergy: No REVIEW OF SYSTEMS: GENERAL: Negative for: Fever or Chills HEENT: Negative for: Headache, Impaired Vision, Ringing in Ears, Nosebleeds NECK: Negative for: Swelling, Pain, Stiffness RESPIRATORY: Negative for: Cough, Shortness of breath, Wheezing GASTROINTESTINAL: Negative for: Heartburn, Constipation, Diarrhea, Blood in stool, Vomiting MUSCULOSKELETAL: Negative for: Muscle or joint pain, stiffness, Joint swelling NEUROLOGIC/PSYCHIATRIC: Negative for: Weakness, Paralysis, Numbness, Tingling, Tremor, Anxiety, Depression, Memory loss SKIN: Negative for: Rash, Itching GENITOURINARY: Negative for: vaginal itching, vaginal discharge, hematuria or dysuria PHYSICAL EXAM: BP 100/62 Wt 155 lb 9.6 oz (70.6kg) LMP 11/15/2022 GENERAL: pleasant in no apparent distress DERMATOLOGY: Normal, without lesions, non-icteric, and non-hirsute NECK: Supple, full range of motion, no adenopathy, and thyroid normal CHEST: Normal inspiratory effort BREAST: soft, non-tender, symmetric, no dominant mass, normal nipple-areolar complex, no lymphadenopathy, and no nipple discharge ABDOMEN: soft, non-tender, and no masses NEURO: alert and oriented x3,exam grossly non-focal PELVIS: External genitalia normal without lesions. Perineal body intact. No vaginal or cervical lesions. Cervix closed. Uterus 10 week size. No adnexal masses or tenderness. Clinical Pelvimetry: Pelvimetry clinically assessed as adequate Limited OB ultrasound exam: single intrauterine and positive cardiac activity OB Risk Screening: Completed, no positive findings documented. ASSESSMENT: 22 year old at 15w6d wks gestational age PLAN: 1) Patient oriented to practice. Patient given new OB orientation folder. Discussed nutrition, folic acid supplementation, dietary guidelines, exercise, smoking, alcohol, caffeine, and drug use. Discussed routine OB labs including STD/HIV. Discussed how to access Your guide to a health and the Manager Marketing. Discussed aneuploidy and carrier screening. Regarding aneuploidy screening, nuchal translucency/first trimester early anatomy ultrasound and NIPT were discussed. Regarding carrier screening, the myriad screen was discussed. The risks/benefits and limitations of NIPT/aneuploidy screening were reviewed including the potential for false negative and false positive results. We discussed the availability of professional-society guided carrier screening and reviewed the conditions screened and limitations of screening. The availability of genetic counseling was reviewed. Information on aneuploidy/carrier screening was provided. The patient chooses: Aneuploidy screening: chooses to proceed with First trimester early anatomy ultrasound (12-13w6d) and Carrier screening: Declines 2) History of section: Pt counselled regarding TOLAC versus Repeat Section. Repeat C/S. Follow up in 2 weeks for NTor sooner prn. Wayne Greer MD documented in this encounter [facility] 02-26-2023 Note HNO ID: [id number] Author: Clary Dailey RN Service: ? Author Type: ? Type: Progress Notes Filed: 02/26/2023 7:32 AM Note Text: INITIAL OB ASSESSMENT OB Provider: Clary Dailey RN HPI: Caleb is a 22 year old White here to establish Obstetrical Care. Patient's last menstrual period was 11/15/2022 (approximate). from OB Dating Form. Cycles No menses since I Pass was unplanned but accepted-had wanted to wait more time after IPAS/miscarriage Complaints: None OB History T1 L1 SAB2 IAB0 Ectopic0 Multiple0 Live Births1 # 1 - Date: 07/03/18, Sex: Female, Weight: 7 lb 8 oz (3.402 kg), GA: 39w0d, Delivery: , Low Transverse, Apgar1: None, Apgar5: None, Living: Living, Comments: distress,500cc # 2 - Date: 07/07/22, Sex: None, Weight: None, GA: 6w4d, Delivery: MISSED AB, Apgar1: None, Apgar5: None, Living: None, Comments: in office IPAS on 07/28/22 # 3 - Date: 11/14/22, Sex: None, Weight: None, GA: 7w0d, Delivery: MISSED AB, Apgar1: None, Apgar5: None, Living: None, Comments: in office IPAS on 11/20/22 # 4 - Date: None, Sex: None, Weight: None, GA: None, Delivery: None, Apgar1: None, Apgar5: None, Living: None, Comments: None Previous history: Prior : yes x 1 History of 4th degree laceration: No History of shoulder dystocia: No History of Hypertensive disorders including pre-eclampsia, chronic hypertension or gestational hypertension: No History of gestational diabetes: No Patient's Risk Screening for delivery: Have you had a prior myers between 20w and 36w6d?: No MEDICAL/PSYCHOSOCIAL HISTORY: History of hemorrhage or bleeding concerns: No Thyroid Disease: No History of chronic hypertension: No History of pre-existing diabetes: No No results found for: ABORHD No weight on file for this encounter. History of abnormal pap: No Prior treatment for cervical dysplasia: none. History of STDs: None Tobacco use: Yes, vaping Caffeine use: Yes 1 cup a day of coffee Drug use: No Alcohol use: No Multivitamin with Folic acid: Yes Muslim or heritage: No Would refuse blood transfusion if medically necessary: No Are you currently employed? Yes, Occupation: [employer] Do you have any history of depression, anxiety, PTSD, eating disorders or other mood problems: Yes Do you have any safety concerns or history of traumatic events that you would like to discuss with your provider: No SDOH Screening: How often does this describe you? I don't have enough money to pay my bills: Never Within the past 12 months, have you worried that your food would run out before you had money to buy more: Never In the past 12 months, has lack of reliable transportation kept you from going to medical appointments or work, or from keeping things needed for daily living: Never In the past 12 months, have you had any concerns about having a place to live, or about the condition or quality of your housing: Never Are there any cultural or spiritual needs we should be aware of: No Depression/Anxiety Screening: denies symptoms of depression. OB Depression and Anxiety Screening- This Encounter (since 02/25/2023) None Genetic Screening: Partner present: No Patient verbalized knowledge of partner family health history: No Do you or your partner have any personal or family history of defects not previously discussed: No Do you have history of a complicated by anomaly, genetic condition, or demise: No ACOG Recommended Screening Screening for early gestational diabetes testing: Criteria for early testing requires elevated BMI plus one other risk factor: No weight on file for this encounter. (risk factor if > than 25 or 23 in Americans) Additional risk factors: None She does not meet ACOG criteria for early gestational DM screening. 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 prental multivitamin 27 mg iron- 800 mcg tablet Take 1 tablet (more content not included)... [facility] 02-26-2023 Miscellaneous Notes Formattin g of this note might be different from the original. DISTANCE HEALTH VISIT This Team Access Model visit is a phone encounter. It required patient-provider interaction for the medical decision making as documented below. I have communicated my name and active licensure. The patient's identity and physical location were verified at the time of this visit. Patient is 4 para 1 with a history of a miscarriage in June and October of this year. She denies any bleeding, pain or cramping this . She states she was seen at the care center on February 12 and she was 7 weeks 4 days at that time and was given an EDC of September 28. Patient has a history of a by Dr. Miranda on June 23, 2018 for distress. Patient believes she wants to have a repeat . BRET s on and was ordered and patient states she watched these previously.Pt has a history of anxiety/depression diagnosed at age 11 and treated by Kenya Mitchell at [facility]. She has been off medication for 2 years. She believes she is doing well off medication. She denies any history of depression. Discussed increased risks of depression during and and importance of reporting the development or worsening of symptoms should they occur. Patient states she did have suicidal thoughts as a teenager but none since then. Denies ever having any psychiatric hospitalizations. Patient states she has a history of tachycardia that was diagnosed in 2016 and treated by Kenya Mitchell. She states she took meclizine for short time. States she did not see a human resources officer for this but she did wear a heart monitor and had a EKG. She states she was last seen for this issue in 2018. States I used to get a fast heartrate and then pass out. I haven't done that in years . Patient desires nuchal ultrasound. Contact information for [facility] given to patient to check on insurance coverage. Patient declines genetic carrier screening testing.Clary Dailey RN documented in this encounter [facility] 02-26-2023 History of Presen t illness Narrative INITIAL OB ASSESSMENT OB Provider: Clary Dailey RN HPI: Caleb is a 22 year old White here to establish Obstetrical Care. Patient's last menstrual period was 11/15/2022 (approximate). from OB Dating Form. Cycles No menses since I Pass was unplanned but accepted-had wanted to wait more time after IPAS/miscarriage Complaints: None OB History T1 L1 SAB2 IAB0 Ectopic0 Multiple0 Live Births1 # 1 - Date: 07/03/18, Sex: Female, Weight: 7 lb 8 oz (3.402 kg), GA: 39w0d, Delivery: , Low Transverse, Apgar1: None, Apgar5: None, Living: Living, Comments: distress,500cc # 2 - Date: 07/07/22, Sex: None, Weight: None, GA: 6w4d, Delivery: MISSED AB, Apgar1: None, Apgar5: None, Living: None, Comments: in office IPAS on 07/28/22 # 3 - Date: 11/14/22, Sex: None, Weight: None, GA: 7w0d, Delivery: MISSED AB, Apgar1: None, Apgar5: None, Living: None, Comments: in office IPAS on 11/20/22 # 4 - Date: None, Sex: None, Weight: None, GA: None, Delivery: None, Apgar1: None, Apgar5: None, Living: None, Comments: None Previous history: Prior : yes x 1 History of 4th degree laceration: No History of shoulder dystocia: No History of Hypertensive disorders including pre-eclampsia, chronic hypertension or gestational hypertension: No History of gestational diabetes: No Patient's Risk Screening for delivery: Have you had a prior myers between 20w and 36w6d?: No MEDICAL/PSYCHOSOCIAL HISTORY: History of hemorrhage or bleeding concerns: No Thyroid Disease: No History of chronic hypertension: No History of pre-existing diabetes: No No results found for: ABORHD No weight on file for this encounter. History of abnormal pap: No Prior treatment for cervical dysplasia: none. History of STDs: None Tobacco use: Yes, vaping Caffeine use: Yes 1 cup a day of coffee Drug use: No Alcohol use: No Multivitamin with Folic acid: Yes Muslim or heritage: No Would refuse blood transfusion if medically necessary: No Are you currently employed? Yes, Occupation: [employer] Do you have any history of depression, anxiety, PTSD, eating disorders or other mood problems: Yes Do you have any safety concerns or history of traumatic events that you would like to discuss with your provider: No SDOH Screening: How often does this describe you? I don't have enough money to pay my bills: Never Within the past 12 months, have you worried that your food would run out before you had money to buy more: Never In the past 12 months, has lack of reliable transportation kept you from going to medical appointments or work, or from keeping things needed for daily living: Never In the past 12 months, have you had any concerns about having a place to live, or about the condition or quality of your housing: Never Are there any cultural or spiritual needs we should be aware of: No Depression/Anxiety Screening: denies symptoms of depression. OB Depression and Anxiety Screening- This Encounter (since 02/25/2023) None Genetic Screening: Partner present: No Patient verbalized knowledge of partner family health history: No Do you or your partner have any personal or family history of defects not previously discussed: No Do you have history of a complicated by anomaly, genetic condition, or demise: No ACOG Recommended Screening Screening for early gestational diabetes testing: Criteria for early testing requires elevated BMI plus one other risk factor: No weight on file for this encounter. (risk factor if > than 25 or 23 in Americans) Additional risk factors: None She does not meet ACOG criteria for early gestational DM screening. 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 prental multivitamin 27 mg iron- 800 mcg tablet Take 1 tablet by mouth once daily. 30 tablet 12 No current facility-administered medications for this visit. Allergies As of Date: 02/26/2023 Allergen Noted Reaction BACTRIM [SULFAMETHOXAZOLE-TRIMETH*06/21 Hives LAVENDER 07/06/2022 Hives PORK DERIVED (PORCINE) 07/06/2022 Hives Fully Assessed 02/26/2023 Does patient have penicillin allergy: No documented in this encounter [facility] 12-01-2022 Note HNO ID: [id number] Author: Dean Patterson MD Service: ? Author Type: Physician Type: Progress Notes Filed: 12/01/2022 12:01 PM Note Text: Caleb YOUNGER is a 22 year old female who presents for problem visit for f/u miscarriage.. HPI: Patient reports bleeding stopped after a few days. She has not had a menses yet. She has good support help at home. She is grieving somewhat but feels overall she is doing well. Eating and drinking and sleeping okay. Does not plan on using contraception. Does not have any questions or concerns today. OB History T1 L1 SAB2 IAB0 Ectopic0 Multiple0 Live Births1 Gear Shaper History LMP: 08/22/2022, Recent Age at Menarche: Age at First : Age at Menopause: Gear Shaper History Comments: Sexual Activity: No sexual activity data on record; No partner data on record Contraception: No contraception data on record PAST MEDICAL HISTORY Diagnosis Date Anemia Anxiety and depression Miscarriage Tachycardia PAST SURGICAL HISTORY Procedure Laterality Date DELIVERY ONLY [facility] 07/18/2021 Dr Cathleen Baker MANUAL VACUUM ASPIRATION 07/28/2022 in office IPAS for missed ab MANUAL VACUUM ASPIRATION 11/20/2022 in office IPAS for missed ab FAMILY HISTORY Problem Relation Age of Onset Asthma Mother No Known Problems Father other (lung disease) Sister No Known Problems Sister No Known Problems Brother No Known Problems Brother No Known Problems Brother No Known Problems Brother No Known Problems Brother other (stomach cancer) Maternal Grandmother other (bone cancer) Maternal Grandfather No Known Problems Paternal Grandmother No Known Problems Paternal Grandfather No Known Problems Daughter Social History Tobacco Use Smoking status: Former Types: Cigarettes Quit date: 09/24/2022 Years since quittin.1 Smokeless tobacco: Never Vaping Use Vaping Use: Former Start date: 09/24/2022 Substances: Nicotine, Flavoring Substance Use Topics Alcohol use: Not Currently Comment: Occasionally Drug use: Never Current Outpatient Medications Medication Sig prental multivitamin 27 mg iron- 800 mcg tablet Take 1 tablet by mouth once daily. (Patient not taking: Reported on 12/01/2022) No current facility-administered medications for this visit. Allergies As of Date: 12/01/2022 Allergen Noted Reaction BACTRIM [SULFAMETHOXAZOLE-TRIMETH*06/21 Hives LAVENDER 07/06/2022 Hives PORK DERIVED (PORCINE) 07/06/2022 Hives Fully Assessed 12/01/2022 Allergies and current medication updated:Yes EXAM: BP 108/70 Wt 155 lb (70.3kg) LMP 08/22/2022 GENERAL: pleasant, female in no apparent distress ASSESSMENT AND PLAN: Follow-up complete spontaneous . Recommend continuing vitamin anticipation of future . Discussed with her that in order serial quant's that she is currently and anatomy ultrasound, she can wait until 8 to 9 weeks, talk to her. Reportedly bleeding pain when she is newly . Questions answered. Patient is comfortable with plan. Dean Patterson MD [facility] 12-01-2022 History of Presen t illness Narrative Caleb YOUNGER is a 22 year old female who presents for problem visit for f/u miscarriage.. HPI: Patient reports bleeding stopped after a few days. She has not had a menses yet. She has good support help at home. She is grieving somewhat but feels overall she is doing well. Eating and drinking and sleeping okay. Does not plan on using contraception. Does not have any questions or concerns today. OB History T1 L1 SAB2 IAB0 Ectopic0 Multiple0 Live Births1 Gear Shaper History LMP: 08/22/2022, Recent Age at Menarche: Age at First : Age at Menopause: Gear Shaper History Comments: Sexual Activity: No sexual activity data on record; No partner data on record Contraception: No contraception data on record PAST MEDICAL HISTORY Diagnosis Date Anemia Anxiety and depression Miscarriage Tachycardia PAST SURGICAL HISTORY Procedure Laterality Date DELIVERY ONLY [facility] 07/18/2021 Dr Cathleen Baker MANUAL VACUUM ASPIRATION 07/28/2022 in office IPAS for missed ab MANUAL VACUUM ASPIRATION 11/20/2022 in office IPAS for missed ab FAMILY HISTORY Problem Relation Age of Onset Asthma Mother No Known Problems Father other (lung disease) Sister No Known Problems Sister No Known Problems Brother No Known Problems Brother No Known Problems Brother No Known Problems Brother No Known Problems Brother other (stomach cancer) Maternal Grandmother other (bone cancer) Maternal Grandfather No Known Problems Paternal Grandmother No Known Problems Paternal Grandfather No Known Problems Daughter Social History Tobacco Use Smoking status: Former Types: Cigarettes Quit date: 09/24/2022 Years since quittin.1 Smokeless tobacco: Never Vaping Use Vaping Use: Former Start date: 09/24/2022 Substances: Nicotine, Flavoring Substance Use Topics Alcohol use: Not Currently Comment: Occasionally Drug use: Never Current Outpatient Medications Medication Sig prental multivitamin 27 mg iron- 800 mcg tablet Take 1 tablet by mouth once daily. (Patient not taking: Reported on 12/01/2022) No current facility-administered medications for this visit. Allergies As of Date: 12/01/2022 Allergen Noted Reaction BACTRIM [SULFAMETHOXAZOLE-TRIMETH*06/21 Hives LAVENDER 07/06/2022 Hives PORK DERIVED (PORCINE) 07/06/2022 Hives Fully Assessed 12/01/2022 Allergies and current medication updated:Yes EXAM: BP 108/70 Wt 155 lb (70.3kg) LMP 08/22/2022 GENERAL: pleasant, female in no apparent distress ASSESSMENT AND PLAN: Follow-up complete spontaneous . Recommend continuing vitamin anticipation of future . Discussed with her that in order serial quant's that she is currently and anatomy ultrasound, she can wait until 8 to 9 weeks, talk to her. Reportedly bleeding pain when she is newly . Questions answered. Patient is comfortable with plan. Dean Patterson MD documented in this encounter [facility] 11-20-2022 Note HNO ID: [id number] Author: Dean Patterson MD Service: ? Author Type: Physician Type: Progress Notes Filed: 11/20/2022 11:03 AM Note Text: UNIVERSAL PROTOCOL / SAFETY CHECKLIST Procedure to be Performed: IPAS for miscarriage Sign In: A Moment of CARE was completed. Personnel directly involved with the procedure wore the appropriate PPE (Personal Protective Equipment). Patient/Surrogate Stated/Verified: PATIENT VERIFIED(optional for EMERGENT procedures): Patient name, Date of , Relevant allergies, and The intended procedure Time Out Communication: Intended patient and procedure match the source documents. Consent documented and matches the intended procedure. No implant(s) inserted. I performed a brief US which revealed some heterogenous debris in the uterus. No definitive sac. No embryo. Sign Out: SIGN OUT (optional for EMERGENT procedures): All specimen containers correctly labeled. All instruments, equipment, possible retained foreign bodies accounted for. Post-procedure follow-up management communicated and Plan of Care Visit completed when applicable. Dean Patterson MD Procedure note: Speculum was placed in the vagina. After prepping the cervix with betadine paracervical block was performed using 15cc of 1% lidocaine with 1:100,000 epi. Cervix was grasped with single tooth tenaculum. Cervix was dilated. Using sterile technique, the Manual Vacuum Aspiration device with size 8 cannula was inserted into the uterus and contents were evacuated. Post-procedure ultrasound confirmed no retained tissue. Post-procedure vital signs were obtained and stable Specimen was sent to pathology Patient tolerated procedure well. PLAN: Patient was advised to observe for signs and symptoms of infection including but not limited to fever, malodorous vaginal discharge and/or pain. Bleeding expectations were reviewed. Follow up: in 1-2 weeks or prn Dean Patterson MD [facility] 11-20-2022 Instructions Pily Akbar RN - 11/20/2022 8:53 AM EDT Information and Instructions: After a Manual Uterine Aspiration (IPAS) Procedure Bleeding Most people have some bleeding after an aspiration procedure. The amount differs for each everyone, ranging from no bleeding to moderate period-like bleeding and lasting for a few days to 2-6 weeks. It is normal to have blood clots when you stand up or use the bathroom during the first few days. It is ok to be as active as you feel ready to be. You may notice more bleeding and cramping during activity. Please call if you are completely soaking through a pad every hour for 2 hours, or passing multiple large clots or larger and larger clots. Cramping Most women have some cramping after the procedure. The amount of discomfort varies, as everyone experiences pain in a different way. Some women find that a heating pad or hot water bottle on the stomach or back helps. If you don t have a heating pad, put some rice into a sock and heat it in the microwave, but beware, it s hot! You may also take ibuprofen (Motrin/ Advil) or naproxen (Aleve). If you can t take either of those medications you may use acetaminophen (Tylenol). Please call if you have severe pain or cramps that are not relieved by the pain medication. Fever Please call if your temperature is 100.4 degrees or higher for more than 2 hours. Fever can be a sign of infection, so call your doctor if you are feeling sick. You may have received a medication called misoprostol, which can cause a fever on the day of your procedure that goes away on it's own and is not concerning. symptoms You may have symptoms such as nausea, breast tenderness, or fatigue that last for a few days after the procedure. You may also notice some nipple discharge or breast swelling. If this occurs, wear a supportive bra and avoid stimulation. You may also use a cold compress. Your test may remain positive for up to 4 weeks. Please call if you have symptoms that last longer than 7 - 10 days. control For most people, it is physically possible (though unlikely) to become in the next 2 - 4 weeks, so it is important to start a control method if you are not planning a right away. Please discuss this with your provider if you have not already chosen a method. If you would like to become soon after this procedure, please discuss this with your doctor. Follow up Most women do not need a follow up appointment. Your doctor may recommend one, or you may choose to schedule one if you have any concerns, problems, or questions. Please do not put anything in your vagina for 1 week (no vaginal intercourse, toys, tampons, or douching). Do not swim or use hot tubs for 1 week. Baths by yourself (do not share water for 2 weeks) and showers are OK. Important Phone Numbers: [facility] Appointments in [facility] ( Early Assessment Clinics) Karmen Carpenterconrad Sharpe [facility] at [phone] [facility] at [phone] [facility] at [phone] After 4:30 PM or on weekends, you may reach the on-call [facility] by calling the clinic where you were seen. This will automatically transfer you to a contracted answering service, who will then page the appropriate provider. Most calls are returned within 15-20 minutes depending on other direct patient care. When to call the doctor: If your temperature is 100.4 degrees or higher for more than 2 hours. If you have heavy bleeding and soak through more than 2 pads in an hour for 2 hours in a row. If you have severe pain or cramps that are not relieved by the pain medication. LOSS RESOURCES Physical recovery from loss from a spontaneous miscarriage, ectopic , D&C, or a D&E may take several weeks. However, emotional recovery can take longer, and is individualized to each person. Many people have different feelings and experiences with loss or termination. Grief is a normal part of the healing process. Taking time to heal both physically and emotionally after a loss is important. Above all, don t blame yourself. Counseling is available to help you cope with your loss. A loss support group might also be a valuable resource to you and your partner. ONLINE RESOURCES Unspoken Grief: an online miscarriage support resource for miscarriage, stillbirth and loss unspokengrief.org A Heartbreaking Choice: support for diagnosis or termination for medical reasons. http://www.Mogotest/ [facility]: ending a for a abnormality http://www.X BODYtalAquaMostnlINVOLTA.or g/Pregnancy_children/Ending_a_ pregnancy_for_fetal_abnormalit y Ending a Wanted : support for patients and families ending a after or maternal medical diagnosis https://endingawantedpregnancy .com Boniing Elyse: one person's story about loss and collected resources. http://www.icanbuy.[employer] [place] Gift: headquarters in [place] but with online support group https://www.ERCOM.BuildZoom/in aggc-bkmy-hzwealk-groups.html LOCAL RESOURCES Love Lives On, [facility] https://my.[facility].org /locations/[facility]/ guest-services/support F.E.E.L.(Families Experiencing Early Loss) [facility] https://consultqd.[facility].org/kjlxohstq-lazeuhakn-au idukfmjwd-mslhxuc-snhrddyy-gri eving-families/ [facility] - counseling services [phone] or toll free at [phone] [facility] Support Groups (not specific to loss) https://my.[facility].org /patients/information/bereavem ent/support-groups [facility] Counselors with experience with families facing the loss of a baby before . This service may be covered by your insurance. If not, [facility] will not turn anyone away because of inability to pay. or [phone] Harris Martinez, local counselor, not associated with [facility] [phone] Some of our families have recommended Harris Martinez as he specializes in helping families who have had or are facing a loss. This may be covered by your insurance, if not, a sliding scale payment plan is available. BOOKS Our Heartbreaking Choices: Forty-Six Women Share Their Stories of Interrupting a Much-Wanted , By Pamella Lynn Sorrow: Loss-Guidance and Support for You and Your Family, By Magdalene Perez and Bull Perdomo Unspeakable Losses: Healing from Miscarriage, , and other Loss, By Leah Rogers Empty Cradle, Broken Heart: Surviving the of your Baby, By Ivette Rivers Empty Arms: Coping with Miscarriage, Stillbirth, and Infant , By Ten Michaud I Love You Still: A Memorial Baby Book, By Marge Cotto Understanding Your Grief: Ten Essential Touchstones for Finding Hope and Healing Your Heart, By Clemente Cantu BOOKS FOR CHILDREN We Were Gonna Have a Baby, But We had an Viraj Instead, By Rosita Cary My Sibling Still, By Uma Thomason The Goodbye Book, By Braydon More Something Happened, By Marie Hurd No New Baby, By Rashmi Luna The Invisible String, By Sekou Avina Our Baby , by Jeanette Frazier (two books, one for surgical termination and one for induction of labor) documented in this encounter [facility] 11-20-2022 Nurse Note Pre Procedure Assessment: Caleb YOUNGER is a 22 year old here for an MAYUR procedure. Patient's last menstrual period was Patient's last menstrual period was 08/22/2022. (approximate). Reason for procedure: Missed Anxiolytic Checklist Has ride home? Yes Current use of prescribed or non-prescribed opioids or benzos: No Medications: Patient self-administered and Provided by office:Toradol 60 mg IM - see MAR Lorazepam 0.5 mg at 0845 in office today Doxycycline taken at home prior to arrival today Blood Type: A negative Hemoglobin: No results found for: HB Rhophylac Administered:No Procedure end time: 916 Post Procedure Assessment: Time of first post-procedure assessment: 917 Vitals: BP 108/68 HR 72 SpO2 100 RR 18 Bleeding:None Pain ratin/10- pelvic cramping Time of second post-procedure assessment: 931 Vitals: BP 98/74 HR 74 SpO2 99 RR 16 Bleeding:Light Pain Ratin/10 - pelvic cramping Pily Akbar RN documented in this encounter [facility] 11-20-2022 History of Presen t illness Narrative UNIVERSAL PROTOCOL / SAFETY CHECKLIST Procedure to be Performed: IPAS for miscarriage Sign In: A Moment of CARE was completed. Personnel directly involved with the procedure wore the appropriate PPE (Personal Protective Equipment). Patient/Surrogate Stated/Verified: PATIENT VERIFIED(optional for EMERGENT procedures): Patient name, Date of , Relevant allergies, and The intended procedure Time Out Communication: Intended patient and procedure match the source documents. Consent documented and matches the intended procedure. No implant(s) inserted. I performed a brief US which revealed some heterogenous debris in the uterus. No definitive sac. No embryo. Sign Out: SIGN OUT (optional for EMERGENT procedures): All specimen containers correctly labeled. All instruments, equipment, possible retained foreign bodies accounted for. Post-procedure follow-up management communicated and Plan of Care Visit completed when applicable. Dean Patterson MD Procedure note: Speculum was placed in the vagina. After prepping the cervix with betadine paracervical block was performed using 15cc of 1% lidocaine with 1:100,000 epi. Cervix was grasped with single tooth tenaculum. Cervix was dilated. Using sterile technique, the Manual Vacuum Aspiration device with size 8 cannula was inserted into the uterus and contents were evacuated. Post-procedure ultrasound confirmed no retained tissue. Post-procedure vital signs were obtained and stable Specimen was sent to pathology Patient tolerated procedure well. PLAN: Patient was advised to observe for signs and symptoms of infection including but not limited to fever, malodorous vaginal discharge and/or pain. Bleeding expectations were reviewed. Follow up: in 1-2 weeks or prn Dean Patterson MD documented in this encounter [facility] 11-17-2022 Miscellaneous Notes Formattin g of this note might be different from the original. Patient notified of below information. Appointment given. Referral placed. RR- Please file pending CAM order for Toradol 60 MG. Thank you. Gale Carter RN Please put SW and my schedule on hold Sunday am. I will be glad to do it for her at 9 am. She should arrive at 830. Pend toradol order. S he should take the ativan after she arrives. Please take doxy with food that am. Take 1000 mg of tylenol 1 hr before arrival. Needs a support person to drive her home. Dean Patterson MD See below. Patient called back. States she is still having bleeding. Not passing any clots or tissue. Inquired if she wanted Cytotec as discussed with VIKTORIA in the office. Patient desires IPAS. VIKTORIA is out of the office until . Is there another day next week with another provider we should schedule patient? Glae Carter RN Message left asking pt to contact the office at her convenience. Sunita Gaalviz LPN Missed AB. KJ asked that we call patient today. Patient wanted to think about things. Is patient wanting Cytotec? Left message for patient to call office. VIKTORIA is out of the office this week. Will need another provider to send RX in if patient wants it. Gale Carter RN documented in this encounter [facility] 11-14-2022 Note HNO ID: [id number] Author: Wayne Greer MD Service: ? Author Type: Physician Type: Progress Notes Filed: 11/14/2022 4:37 PM Note Text: Caleb YOUNGER is a 22 year old female who presents for problem visit. HPI: Patient presents with increased vaginal bleeding. She was seen on [facility] over the weekend. OB History T1 L1 SAB1 IAB0 Ectopic0 Multiple0 Live Births1 Gear Shaper History LMP: 08/22/2022, Age at Menarche: Age at First : Age at Menopause: Gear Shaper History Comments: Sexual Activity: No sexual activity data on record; No partner data on record Contraception: No contraception data on record PAST MEDICAL HISTORY Diagnosis Date Anemia Anxiety and depression Miscarriage Tachycardia PAST SURGICAL HISTORY Procedure Laterality Date DELIVERY ONLY MARGARITO DIAG AND/OR THERAPEUTIC HSG 07/18/2021 Dr Cathleen Baker FAMILY HISTORY Problem Relation Age of Onset Asthma Mother No Known Problems Father other (lung disease) Sister No Known Problems Sister No Known Problems Brother No Known Problems Brother No Known Problems Brother No Known Problems Brother No Known Problems Brother other (stomach cancer) Maternal Grandmother other (bone cancer) Maternal Grandfather No Known Problems Paternal Grandmother No Known Problems Paternal Grandfather No Known Problems Daughter Social History Tobacco Use Smoking status: Former Types: Cigarettes Quit date: 09/24/2022 Years since quittin.1 Smokeless tobacco: Never Vaping Use Vaping Use: Former Start date: 09/24/2022 Substances: Nicotine, Flavoring Substance Use Topics Alcohol use: Not Currently Comment: Occasionally Drug use: Never Current Outpatient Medications Medication Sig prental multivitamin 27 mg iron- 800 mcg tablet Take 1 tablet by mouth once daily. No current facility-administered medications for this visit. Allergies As of Date: 11/14/2022 Allergen Noted Reaction BACTRIM [SULFAMETHOXAZOLE-TRIMETH*06/21 Hives LAVENDER 07/06/2022 Hives PORK DERIVED (PORCINE) 07/06/2022 Hives Fully Assessed 11/14/2022 Allergies and current medication updated:Yes EXAM: BP 122/74 Wt 156 lb (70.8kg) LMP 08/22/2022 GENERAL: pleasant, female in no apparent distress PELVIC: external genitalia normal, normal appearing perineal body and perianal region ASSESSMENT AND PLAN: 22yo female with missed ED records reviewed including hcg quant of 6177 which is decreased from prior levels. TVUS shows pole (measuring 7wks) with no fca and small GS (consistent with measurements from formal ED US on 11/11). Discussed findings with patient. Discussed R/B/A of treatment options and patient wants to think about things. She will contact the office if wishes to proceed with cytotec. Medical Decision Making: Problems: Moderate: New problem with uncertain prognosis Data: Unique source(s) for external note(s) reviewed: 1 Unique test result(s) reviewed: 3+ Risk: Low: Low risk from testing/treatment Medical Decision Making Level: 4 - Moderate Wayne Greer MD [facility] 11-14-2022 History of Presen t illness Narrative Caleb YOUNGER is a 22 year old female who presents for problem visit. HPI: Patient presents with increased vaginal bleeding. She was seen on [facility] over the weekend. OB History T1 L1 SAB1 IAB0 Ectopic0 Multiple0 Live Births1 Gear Shaper History LMP: 08/22/2022, Age at Menarche: Age at First : Age at Menopause: Gear Shaper History Comments: Sexual Activity: No sexual activity data on record; No partner data on record Contraception: No contraception data on record PAST MEDICAL HISTORY Diagnosis Date Anemia Anxiety and depression Miscarriage Tachycardia PAST SURGICAL HISTORY Procedure Laterality Date DELIVERY ONLY D&C, DIAG AND/OR THERAPEUTIC HSG 07/18/2021 Dr Cathleen Baker FAMILY HISTORY Problem Relation Age of Onset Asthma Mother No Known Problems Father other (lung disease) Sister No Known Problems Sister No Known Problems Brother No Known Problems Brother No Known Problems Brother No Known Problems Brother No Known Problems Brother other (stomach cancer) Maternal Grandmother other (bone cancer) Maternal Grandfather No Known Problems Paternal Grandmother No Known Problems Paternal Grandfather No Known Problems Daughter Social History Tobacco Use Smoking status: Former Types: Cigarettes Quit date: 09/24/2022 Years since quittin.1 Smokeless tobacco: Never Vaping Use Vaping Use: Former Start date: 09/24/2022 Substances: Nicotine, Flavoring Substance Use Topics Alcohol use: Not Currently Comment: Occasionally Drug use: Never Current Outpatient Medications Medication Sig prental multivitamin 27 mg iron- 800 mcg tablet Take 1 tablet by mouth once daily. No current facility-administered medications for this visit. Allergies As of Date: 11/14/2022 Allergen Noted Reaction BACTRIM [SULFAMETHOXAZOLE-TRIMETH*06/21 Hives LAVENDER 07/06/2022 Hives PORK DERIVED (PORCINE) 07/06/2022 Hives Fully Assessed 11/14/2022 Allergies and current medication updated:Yes EXAM: BP 122/74 Wt 156 lb (70.8kg) LMP 08/22/2022 GENERAL: pleasant, female in no apparent distress PELVIC: external genitalia normal, normal appearing perineal body and perianal region ASSESSMENT AND PLAN: 22yo female with missed ED records reviewed including hcg quant of 6177 which is decreased from prior levels. TVUS shows pole (measuring 7wks) with no fca and small GS (consistent with measurements from formal ED US on 11/11). Discussed findings with patient. Discussed R/B/A of treatment options and patient wants to think about things. She will contact the office if wishes to proceed with cytotec. Medical Decision Making: Problems: Moderate: New problem with uncertain prognosis Data: Unique source(s) for external note(s) reviewed: 1 Unique test result(s) reviewed: 3+ Risk: Low: Low risk from testing/treatment Medical Decision Making Level: 4 - Moderate Wayne Greer MD documented in this encounter [facility] 11-09-2022 Note HNO ID: [id number] Author: Clary Dailey RN Service: ? Author Type: ? Type: Progress Notes Filed: 11/09/2022 5:32 PM Note Text: # 1 - Date: 07/03/18, Sex: Female, Weight: 7 lb 8 oz (3.402 kg), GA: 39w0d, Delivery: , Low Transverse, Apgar1: None, Apgar5: None, Living: Living, Comments: distress,500cc # 2 - Date: 07/07/22, Sex: None, Weight: None, GA: 6w4d, Delivery: MISSED AB, Apgar1: None, Apgar5: None, Living: None, Comments: DANDC for retained POC # 3 - Date: None, Sex: None, Weight: None, GA: None, Delivery: None, Apgar1: None, Apgar5: None, Living: None, Comments: None [facility] 11-09-2022 Miscellaneous Notes Formattin g of this note might be different from the original. DISTANCE HEALTH VISIT This Team Access Model visit is a phone encounter. It required patient-provider interaction for the medical decision making as documented below.Patient is 3 para 1 with a history of a miscarriage in June of this year. She was seen at [facility] on November 06 for bleeding in . Denies any bleeding since then. She had an ultrasound done there as well as a quantitative hCG and it was 6916. Had repeat quantitative hCG November 09 and it was 6401. Patient will see Dr. Greer today for evaluation. Patient has a history of a by Dr. Miranda on June 23, 2018 for distress. Patient believes she wants to have a repeat . BRET s on and was ordered and patient states she watched these previously.Pt has a history of anxiety/depression diagnosed at age 11 and treated by Kenya Mitchell at [facility]. She has been off medication for about a year and a half. She believes she is doing well off medication. She denies any history of depression. Discussed increased risks of depression during and and importance of reporting the development or worsening of symptoms should they occur. Patient states she did have suicidal thoughts as a teenager but none since then. Denies ever having any psychiatric hospitalizations. Patient states she has a history of tachycardia that was diagnosed in 2016 and treated by Kenya Mitchell. She states she took meclizine for short time. States she did not see a human resources officer for this but she did wear a heart monitor and had a EKG. She states she was last seen for this issue in 2018. Patient desires nuchal ultrasound. Contact information for [facility] given to patient to check on insurance coverage. Patient declines genetic carrier screening testing.Clary Dailey RN documented in this encounter [facility] 11-09-2022 History of Presen t illness Narrative # 1 - Date: 07/03/18, Sex: Female, Weight: 7 lb 8 oz (3.402 kg), GA: 39w0d, Delivery: , Low Transverse, Apgar1: None, Apgar5: None, Living: Living, Comments: distress,500cc # 2 - Date: 07/07/22, Sex: None, Weight: None, GA: 6w4d, Delivery: MISSED AB, Apgar1: None, Apgar5: None, Living: None, Comments: D&C for retained POC # 3 - Date: None, Sex: None, Weight: None, GA: None, Delivery: None, Apgar1: None, Apgar5: None, Living: None, Comments: None documented in this encounter [facility] 11-09-2022 Note HNO ID: [id number] Author: Wayne Greer MD Service: ? Author Type: Physician Type: Progress Notes Filed: 11/09/2022 4:09 PM Note Text: Machine Umbrella Tipper offered: Patient declines. Caleb YOUNGER is a 22 year old female who presents for problem visit. HPI: Patient presents with positive test. She was seen at [facility] on Sunday for vaginal bleeding. Patient reports having an US showing a viable at 6 weeks. OB History T1 L1 SAB1 IAB0 Ectopic0 Multiple0 Live Births1 Gear Shaper History LMP: 08/22/2022, Age at Menarche: Age at First : Age at Menopause: Gear Shaper History Comments: Sexual Activity: No sexual activity data on record; No partner data on record Contraception: No contraception data on record PAST MEDICAL HISTORY Diagnosis Date Anemia Anxiety and depression Miscarriage Tachycardia PAST SURGICAL HISTORY Procedure Laterality Date DELIVERY ONLY DANDC, DIAG AND/OR THERAPEUTIC HSG 07/18/2021 Dr Cathleen Baker FAMILY HISTORY Problem Relation Age of Onset Asthma Mother No Known Problems Father other (lung disease) Sister No Known Problems Sister No Known Problems Brother No Known Problems Brother No Known Problems Brother No Known Problems Brother No Known Problems Brother other (stomach cancer) Maternal Grandmother other (bone cancer) Maternal Grandfather No Known Problems Paternal Grandmother No Known Problems Paternal Grandfather No Known Problems Daughter Social History Tobacco Use Smoking status: Former Types: Cigarettes Quit date: 09/24/2022 Years since quittin.1 Smokeless tobacco: Never Vaping Use Vaping Use: Former Start date: 09/24/2022 Substances: Nicotine, Flavoring Substance Use Topics Alcohol use: Not Currently Comment: Occasionally Drug use: Never Current Outpatient Medications Medication Sig prental multivitamin 27 mg iron- 800 mcg tablet Take 1 tablet by mouth once daily. acetaminophen (TYLENOL EXTRA STRENGTH) 500 mg tablet Take 2 tablets by mouth every 6 hours as needed for pain. FOR PAIN. (Patient not taking: Reported on 11/09/2022) pyridoxine, vitamin B6, (VITAMIN B-6) 50 mg tablet Take 1 tablet by mouth twice daily. (Patient not taking: Reported on 11/09/2022) No current facility-administered medications for this visit. Allergies As of Date: 11/09/2022 Allergen Noted Reaction BACTRIM [SULFAMETHOXAZOLE-TRIMETH*06/21 Hives LAVENDER 07/06/2022 Hives PORK DERIVED (PORCINE) 07/06/2022 Hives Fully Assessed 11/09/2022 Allergies and current medication updated:Yes EXAM: BP 102/62 Wt 155 lb 6.4 oz (70.5kg) LMP 08/22/2022 GENERAL: pleasant, female in no apparent distress PELVIC: external genitalia normal, normal appearing perineal body and perianal region ASSESSMENT AND PLAN: 22yo female with threatened Reviewed hcg quants (11/06 at [facility] = 6,916 and 11/08 [facility] 6,401). Discussed that decreasing hcg quants are from different labs. TVUS today shows viable IUP measuring 6AND3 with fca in 130's. Plan for repeat hcg quant on Sunday. If rising will get repeat US in 10-14 days. If decreasing will see patient Sunday for another US. All questions answered AND patient agrees with plan. Medical Decision Making: Problems: Moderate: New problem with uncertain prognosis Data: Unique test result(s) reviewed: 2 Unique test(s) ordered: 1 Risk: Low: Low risk from testing/treatment Medical Decision Making Level: 4 - Moderate Wayne Greer MD [facility] documented as of this encounter (statuses as of 12/01/2022) [facility] History of Past illness Narrative* Problem Noted Date Diagnosed Date Resolved Date Current with histo ry of spontaneous during prior 11/09/2022 12/02/19 23 Overview: 11/09/2022atient is 3 para 1 with a history of a miscarriage in June of this year. She was seen at [facility] on November 06 for bleeding in . Denies any bleeding since then. She had an ultrasound done there as well as a quantitative hCG and it was 6916. Had repeat quantitative hCG November 09 here at [facility] and it was 6401. Patient will see Dr. Greer today for evaluation. Patient has a history of a by Dr. Miranda on June 23, 2018 for distress. Patient believes she wants to have a repeat . BRET s on and was ordered and patient states she watched these previously.Pt has a history of anxiety/depression diagnosed at age 11 and treated by Kenya Mitchell at [facility]. She has been off medication for about a year and a half. She believes she is doing well off medication. She denies any history of depression. Discussed increased risks of depression during and and importance of reporting the development or worsening of symptoms should they occur. Patient states she did have suicidal thoughts as a teenager but none since then. Denies ever having any psychiatric hospitalizations. Patient states she has a history of tachycardia that was diagnosed in 2016 and treated by Kenya Mitchell. She states she took meclizine for short time. States she did not see a human resources officer for this but she did wear a heart monitor and had a EKG. She states she was last seen for this issue in 2018. Patient desires nuchal ultrasound. Contact information for integrated genetics given to patient to check on insurance coverage. Patient declines genetic carrier screening testing.Clary Dailey RN documented as of this encounter (statuses as of 02/26/2023) [facility] History of Past illness Narrative* Problem Noted Date Diagnosed Date Resolved Date Current with histo ry of spontaneous during prior 11/09/2022 12/02/19 23 Overview: 3Patient is 3 para 1 with a history of a miscarriage in June of this year. She was seen at [facility] on November 06 for bleeding in . Denies any bleeding since then. She had an ultrasound done there as well as a quantitative hCG and it was 6916. Had repeat quantitative hCG November 09 here at [facility] and it was 6401. Patient will see Dr. Greer today for evaluation. Patient has a history of a by Dr. Miranda on June 23, 2018 for distress. Patient believes she wants to have a repeat . BRET s on and was ordered and patient states she watched these previously.Pt has a history of anxiety/depression diagnosed at age 11 and treated by Kenya Mitchell at [facility]. She has been off medication for about a year and a half. She believes she is doing well off medication. She denies any history of depression. Discussed increased risks of depression during and and importance of reporting the development or worsening of symptoms should they occur. Patient states she did have suicidal thoughts as a teenager but none since then. Denies ever having any psychiatric hospitalizations. Patient states she has a history of tachycardia that was diagnosed in 2016 and treated by Kenya Mitchell. She states she took meclizine for short time. States she did not see a human resources officer for this but she did wear a heart monitor and had a EKG. She states she was last seen for this issue in 2018. Patient desires nuchal ultrasound. Contact information for integrated genetics given to patient to check on insurance coverage. Patient declines genetic carrier screening testing.Clary Dailey RN documented as of this encounter (statuses as of 03/07/2023) [facility] History of Past illness Narrative* Problem Noted Date Diagnosed Date Resolved Date Current with histo ry of spontaneous during prior 11/09/2022 12/02/19 23 Overview: 3Patient is 3 para 1 with a history of a miscarriage in June of this year. She was seen at [facility] on November 06 for bleeding in . Denies any bleeding since then. She had an ultrasound done there as well as a quantitative hCG and it was 6916. Had repeat quantitative hCG November 09 here at [facility] and it was 6401. Patient will see Dr. Greer today for evaluation. Patient has a history of a by Dr. Miranda on June 23, 2018 for distress. Patient believes she wants to have a repeat . BRET s on and was ordered and patient states she watched these previously.Pt has a history of anxiety/depression diagnosed at age 11 and treated by Kenya Mitchell at [facility]. She has been off medication for about a year and a half. She believes she is doing well off medication. She denies any history of depression. Discussed increased risks of depression during and and importance of reporting the development or worsening of symptoms should they occur. Patient states she did have suicidal thoughts as a teenager but none since then. Denies ever having any psychiatric hospitalizations. Patient states she has a history of tachycardia that was diagnosed in 2016 and treated by Kenya Mitchell. She states she took meclizine for short time. States she did not see a human resources officer for this but she did wear a heart monitor and had a EKG. She states she was last seen for this issue in 2018. Patient desires nuchal ultrasound. Contact information for integrated genetics given to patient to check on insurance coverage. Patient declines genetic carrier screening testing.Clary Dailey RN documented as of this encounter (statuses as of 03/27/2023) [facility] History of Past illness Narrative* Problem Noted Date Diagnosed Date Resolved Date Current with histo ry of spontaneous during prior 11/09/2022 12/02/19 Overview: 11/09/2022atient is 3 para 1 with a history of a miscarriage in June of this year. She was seen at [facility] on November 06 for bleeding in . Denies any bleeding since then. She had an ultrasound done there as well as a quantitative hCG and it was 6916. Had repeat quantitative hCG November 09 here at [facility] and it was 6401. Patient will see Dr. Greer today for evaluation. Patient has a history of a by Dr. Miranda on June 23, 2018 for distress. Patient believes she wants to have a repeat . BRET del rosario on and was ordered and patient states she watched these previously.Pt has a history of anxiety/depression diagnosed at age 11 and treated by Kenya Mitchell at [facility]. She has been off medication for about a year and a half. She believes she is doing well off medication. She denies any history of depression. Discussed increased risks of depression during and and importance of reporting the development or worsening of symptoms should they occur. Patient states she did have suicidal thoughts as a teenager but none since then. Denies ever having any psychiatric hospitalizations. Patient states she has a history of tachycardia that was diagnosed in 2016 and treated by Kenya Mitchell. She states she took meclizine for short time. States she did not see a human resources officer for this but she did wear a heart monitor and had a EKG. She states she was last seen for this issue in 2018. Patient desires nuchal ultrasound. Contact information for integrated genetics given to patient to check on insurance coverage. Patient declines genetic carrier screening testing.Clary Dailey RN documented as of this encounter (statuses as of 05/04/2023) [facility] Miscellaneous Notes* Telephone Encounter - Neetu Watts RN - 2022 3:53 PM EDT Patient notified and voiced understanding of below information and instructions. Neetu Watts RN * Telephone Encounter - Kaelyn Ramos APRN.CNM - 2022 3:40 PM EDT Recommend repeat serum quant in 2 days. If increasing keep NOB on 11/09. Thanks, Kaelyn Ramos APRN.CNM * Telephone Encounter - Gale Carter RN - 2022 3:08 PM EDT Received ER records from [facility]. Per US report, patient is measuring 6w2d. +FHT. Patientis A NEG blood type. HCG Quantitative (no units) Date Value 2022 6,916 Records to to review. Patient has PNOB and NOB on . Gale Carter RN * Telephone Encounter - Neetu Watts RN - 2022 11:28 AM EDT Left message to call office. Neetu Watts RN * Telephone Encounter - Kaelyn Ramos APRN.CNM - 2022 11:21 AM EDT Can she come today at 250? I can see her then. Can she go to the lab first if possible and can giverhogam when she comes upstairs. Thanks, Kaelyn Ramos APRN.CNM * Telephone Encounter - Gale Carter RN - 2022 9:19 AM EDT LMP 08/22 Approximately 10w6d Patient has PNOB and NOB on . She started bleeding now. Noticed red blood when she wiped. Denies pain. Patient had a recent missed AB earlier this year. Agreeable to HCG levels if appropriate. Orders pending. Would you rather see patient in the office for evaluation? We don't have a Type and Screen on file. Per KJ note, patient stated that she is O negative. Please advise. Gale Carter RN [facility] NoteHNO ID: [id number] Author: Pily Akbar RN Service: ? Author Type: ? Type: Progress Notes Filed: 08/01/2022 3:59 PM Note Text: Nurse Pre Procedure Assessment: Caleb YOUNGER is a 21 year old here for an MAYUR procedure. Patient's last menstrual period was Patient's last menstrual period was 05/10/2022 (exact date). (approximate). Reason for procedure: Incomplete /Retained products Anxiolytic Checklist Has ride home? Yes Current use of prescribed or non-prescribed opioids or benzos: No Medications: Patient self-administered and Provided by office:Toradol 60 mg IM - see MAR Lorazepam 1mg tablet at 1503 Patient moved to procedure room at 1530- gait steady Blood Type: O negative per patient Rhophylac Administered:No - not needed per Dr. Greer Procedure end time: 1608 Post Procedure Assessment: Time of first post-procedure assessment: 1610 Vitals: BP 102/70 HR 78 SpO2 98 RR 16 Bleeding:Light Pain ratin/10 cramping Time of second post-procedure assessment: 1625-see vitals tab Bleeding:Light Pain Ratin/10 cramping Patient tolerated sitting up and gait is steady. She was assisted out of building via wheelchair at 1630. Pily Akbar RN[facility] NoteHNO ID: [id number] Author: Wayne Greer MD Service: ? Author Type: Physician Type: Progress Notes Filed: 08/01/2022 3:59 PM Note Text: Caleb YOUNGER is a 21 year old female who presents for problem visit. HPI: Patient presents with bleeding and incomplete . OB History T1 L1 SAB1 IAB0 Ectopic0 Multiple0 Live Births1 Gear Shaper History LMP: 05/10/2022 (Exact Date), Recent Age at Menarche: Age at First : Age at Menopause: Gear Shaper History Comments: Sexual Activity: No sexual activity data on record; No partner data on record Contraception: No contraception data on record PAST MEDICAL HISTORY Diagnosis Date Anemia Anxiety and depression Tachycardia PAST SURGICAL HISTORY Procedure Laterality Date DELIVERY ONLY HSG 07/18/2021 Dr Cathleen Baker FAMILY HISTORY Problem Relation Age of Onset Asthma Mother No Known Problems Father other (lung disease) Sister No Known Problems Sister No Known Problems Brother No Known Problems Brother No Known Problems Brother No Known Problems Brother No Known Problems Brother other (stomach cancer) Maternal Grandmother other (bone cancer) Maternal Grandfather No Known Problems Paternal Grandmother No Known Problems Paternal Grandfather No Known Problems Daughter Social History Tobacco Use Smoking status: Former Types: Cigarettes Smokeless tobacco: Never Vaping Use Vaping Use: Former Start date: 06/21/2022 Substances: Nicotine, Flavoring Substance Use Topics Alcohol use: Not Currently Comment: Occasionally Drug use: Never Current Outpatient Medications Medication Sig pyridoxine, vitamin B6, (VITAMIN B-6) 50 mg tablet Take 1 tablet by mouth twice daily. prental multivitamin 27 mg iron- 800 mcg tablet Take 1 tablet by mouth once daily. No current facility-administered medications for this visit. Allergies As of Date: 07/28/2022 Allergen Noted Reaction BACTRIM [SULFAMETHOXAZOLE-TRIMETH*07/06/2022 Hives LAVENDER 07/06/2022 Hives PORK DERIVED (PORCINE) 07/06/2022 Hives Fully Assessed 07/28/2022 Allergies and current medication updated:Yes EXAM: BP 102/58 Wt 154 lb 6.4 oz (70.0kg) LMP 05/10/2022 GENERAL: pleasant, female in no apparent distress TVUS: shows endometrium measuring 2cm with likely retained POC's (stable US from past 2 weeks) ASSESSMENT AND PLAN: 21yo female with incomplete Discussed R/B/A and patient wishes to proceed with IPAS. Meds sent to pharmacy AND patient will return later today for procedure. UNIVERSAL PROTOCOL / SAFETY CHECKLIST Procedure to be Performed: IPAS Sign In: A Moment of CARE was completed. Personnel directly involved with the procedure wore the appropriate PPE (Personal Protective Equipment). Patient/Surrogate Stated/Verified: PATIENT VERIFIED(optional for EMERGENT procedures): Patient name, Date of , Relevant allergies, and The intended procedure Time Out Communication: Intended patient and procedure match the source documents. Consent documented and matches the intended procedure. Sign Out: SIGN OUT (optional for EMERGENT procedures): All specimen containers correctly labeled. All instruments, equipment, possible retained foreign bodies accounted for. Post-procedure follow-up management communicated and Plan of Care Visit completed when applicable. Wayne Greer MD Procedure note: Speculum was placed in the vagina. After prepping the cervix with betadine paracervical block was performed using 10cc of 1% lidocaine with 1:100,000 epi. Cervix was grasped with single tooth tenaculum. Cervix was dilated. Using sterile technique, the Manual Vacuum Aspiration device with size 6 cannula was inserted into the uterus and contents were evacuated. Post-procedure ultrasound confirmed no retained tissue. Post-procedure vital signs were obtained and stable Specimen was sent to pathology Patient tolerated procedure well. PLAN: Patient was advised to observe for signs and symptoms of infection including but not limited to fever, malodorous vaginal discharge and/or pain. Bleeding expectations were reviewed. Follow up: 1 week or PRN Wayne Greer [facility]03-10-2023 Instructions* Patient Instructions* Pily Akbar RN - 07/28/2022 2:33 PM EST Information and Instructions: After a Manual Uterine Aspiration (IPAS) Procedure Bleeding Most people have some bleeding after an aspiration procedure. The amount differs for each everyone,ranging from no bleeding to moderate period-like bleeding and lasting for a few days to 2-6 weeks. It is normal to have blood clots when you stand up or use the bathroom during the first few days. It is ok to be as active as you feel ready to be. You may notice more bleeding and cramping during activity. Please call if you are completely soaking through a pad every hour for 2 hours, or passing multiplelarge clots or larger and larger clots. Cramping Most women have some cramping after the procedure. The amount of discomfort varies, as everyone experiences pain in a different way. Some women find that a heating pad or hot water bottle on the stomach or back helps. If you don t have a heating pad, put some rice into a sock and heat it in the microwave, but beware, it s hot! Youmay also take ibuprofen (Motrin/ Advil) or naproxen (Aleve). If you can t take either of those medications you may use acetaminophen (Tylenol). Please call if you have severe pain or cramps that are not relieved by the pain medication. Fever Please call if your temperature is 100.4 degrees or higher for more than 2 hours. Fever can be a sign of infection, so call your doctor if you are feeling sick. You may have received a medication called misoprostol, which can cause a fever on the day of your procedure that goes away on it's own and is not concerning. symptoms You may have symptoms such as nausea, breast tenderness, or fatigue that last for a few days after the procedure. You may also notice some nipple discharge or breast swelling. If this occurs, wear a supportive bra and avoid stimulation. You may also use a cold compress. Your test may remain positive for up to 4 weeks. Please call if you have symptoms that last longer than 7 - 10 days. control For most people, it is physically possible (though unlikely) to become in the next 2 - 4 weeks, so it is important to start a control method if you are not planning a right away. Please discuss this with your provider if you have not already chosen a method. If you would like to become soon after this procedure, please discuss this with your doctor. Follow up Most women do not need a follow up appointment. Your doctor may recommend one, or you may choose toschedule one if you have any concerns, problems, or questions. Please do not put anything in your vagina for 1 week (no vaginal intercourse, toys, tampons, or douching). Do not swim or use hot tubs for 1 week. Baths by yourself (do not share water for 2 weeks) and showers are OK. Important Phone Numbers: [facility] Appointments in [facility] ( Early Assessment Clinics) Karmen Carpenterbs Shar[facility] at [phone] [facility] at [phone] [facility] at [phone] After 4:30 PM or on weekends, you may reach the on-call [facility] [employer] by calling the clinic where you wereseen. This will automatically transfer you to a contracted answering service, who will then page the appropriate provider. Most calls are returned within 15-20 minutes depending on other direct patient care. When to call the doctor: If your temperature is 100.4 degrees or higher for more than 2 hours. If you have heavy bleeding and soak through more than 2 pads in an hour for 2 hours in a row. If you have severe pain or cramps that are not relieved by the pain medication. LOSS RESOURCES Physical recovery from loss from a spontaneous miscarriage, ectopic , D&C, or a D&E may take several weeks. However, emotional recovery can take longer, and is individualized to each person. Many people have different feelings and experiences with loss or termination. Grief is a normal part of the healing process. Taking time to heal both physically and emotionally after a loss is important. Above all,don t blame yourself. Counseling is available to help you cope with your loss. A loss support group might also be a valuable resource to you and your partner. ONLINE RESOURCES Unspoken Grief: an online miscarriage support resource for miscarriage, stillbirth and loss unspokengrief.org A Heartbreaking Choice: support for diagnosis or termination for medical reasons. http://www.[employer]/ [facility]: ending a for a abnormality http://www.healthtalkonline.org/Pregnancy_children/Ending_a_pregnancy_for_fetal_ abnormality Ending a Wanted : support for patients and families ending a after or maternal medical diagnosis https://endingawantedpregnancy.[employer] Defending Elyse: one person's story about loss and collected resources. http://www.[employer] [place] Gift: headquarters in [place] but with online support group https://www.ERCOM.org/exkqgr-witg-ncephlz-groups.html LOCAL RESOURCES Love Lives On, [facility] https://my.[facility].org/locations/[facility]/guest-services/suppo rt [employer].(Families Experiencing Early Loss) [facility] https://consultqd.[facility].org/wgjsrewws-zqdqzwjrt-jkvaikovprr-program-allen nmhtwn-vfphbque-ftgvpbel/ [facility] - counseling services [phone] or toll free at [phone] [facility] Support Groups (not specific to loss) https://my.[facility].org/patients/information/bereavement/support-groups [facility] [place] [facility] Counselors with experience with families facing the loss of a baby before . This service may be covered by your insurance. If not, [facility] will not turn anyone away because of inability to pay. or [phone] Harris Martinez, local counselor, not associated with [facility] [phone] Some of our families have recommended Harris Martinez as he specializes in helping families who have had or are facing a loss. This may be covered by your insurance, if not, a sliding scale payment plan is available. BOOKS Our Heartbreaking Choices: Forty-Six Women Share Their Stories of Interrupting a Much-Wanted , By Pamella Byrd Silent Sorrow: Loss-Guidance and Support for You and Your Family, By Magdalene Perez and Bull Perdomo Unspeakable Losses: Healing from Miscarriage, , and other Loss, By Leah Rogers Empty Cradle, Broken Heart: Surviving the of your Baby, By Ivette Rivers Empty Arms: Coping with Miscarriage, Stillbirth, and , By Ten Michaud I Love You Still: A [facility] Baby Book, By Marge Cotto Understanding Your Grief: Ten Essential Touchstones for Finding Hope and Healing Your Heart, By Clemente Cantu BOOKS FOR CHILDREN We Were Gonna Have a Baby, But We had an Viraj Instead, By Rosita Cary My Sibling Still, By Uma Thomason The Goodbye Book, By Braydon More Something Happened, By Marie Hurd No New Baby, By Rashmi Luna The Invisible String, By Sekou Avina Our Baby , by Jeanette Frazier (two books, one for surgical termination and one for induction of labor) documented in [facility] History of Present illness Narrative* Pily Akbar RN - 07/28/2022 2:30 PM EST Nurse Pre Procedure Assessment: Caleb YOUNGER is a 21 year old here for an MAYUR procedure. Patient's last menstrual period was Patient's last menstrual period was 05/10/2022 (exact date). (approximate). Reason for procedure: Incomplete /Retained products Anxiolytic Checklist Has ride home? Yes Current use of prescribed or non-prescribed opioids or benzos: No Medications: Patient self-administered and Provided by office:Toradol 60 mg IM - see MAR Lorazepam 1mg tablet at 1503 Patient moved to procedure room at 1530- gait steady Blood Type: O negative per patient Rhophylac Administered:No - not needed per Dr. Greer Procedure end time: 1608 Post Procedure Assessment: Time of first post-procedure assessment: 1610 Vitals: BP 102/70 HR 78 SpO2 98 RR 16 Bleeding:Light Pain ratin/10 cramping Time of second post-procedure assessment: 1625-see vitals tab Bleeding:Light Pain Ratin/10 cramping Patient tolerated sitting up and gait is steady. She was assisted out of building via wheelchair [id number]. Pily Akbar RN * Wayne Greer MD - 07/28/2022 1:06 PM EST Caleb YOUNGER is a 21 year old female who presents for problem visit. HPI: Patient presents with bleeding and incomplete . OB History T1 L1 SAB1 IAB0 Ectopic0 Multiple0 Live Births1 Gear Shaper History LMP: 05/10/2022 (Exact Date), Recent Age at Menarche: Age at First : Age at Menopause: Gear Shaper History Comments: Sexual Activity: No sexual activity data on record; No partner data on record Contraception: No contraception data on record PAST MEDICAL HISTORY Diagnosis Date Anemia Anxiety and depression Tachycardia PAST SURGICAL HISTORY Procedure Laterality Date DELIVERY ONLY [facility] 07/18/2021 Dr Cathleen Baker FAMILY HISTORY Problem Relation Age of Onset Asthma Mother No Known Problems Father other (lung disease) Sister No Known Problems Sister No Known Problems Brother No Known Problems Brother No Known Problems Brother No Known Problems Brother No Known Problems Brother other (stomach cancer) Maternal Grandmother other (bone cancer) Maternal Grandfather No Known Problems Paternal Grandmother No Known Problems Paternal Grandfather No Known Problems Daughter Social History Tobacco Use Smoking status: Former Types: Cigarettes Smokeless tobacco: Never Vaping Use Vaping Use: Former Start date: 06/21/2022 Substances: Nicotine, Flavoring Substance Use Topics Alcohol use: Not Currently Comment: Occasionally Drug use: Never Current Outpatient Medications Medication Sig pyridoxine, vitamin B6, (VITAMIN B-6) 50 mg tablet Take 1 tablet by mouth twice daily. prental multivitamin 27 mg iron- 800 mcg tablet Take 1 tablet by mouth once daily. No current facility-administered medications for this visit. Allergies As of Date: 07/28/2022 Allergen Noted Reaction BACTRIM [SULFAMETHOXAZOLE-TRIMETH*07/06/2022 Hives LAVENDER 07/06/2022 Hives PORK DERIVED (PORCINE) 07/06/2022 Hives Fully Assessed 07/28/2022 Allergies and current medication updated:Yes EXAM: BP 102/58 Wt 154 lb 6.4 oz (70.0kg) LMP 05/10/2022 GENERAL: pleasant, female in no apparent distress TVUS: shows endometrium measuring 2cm with likely retained POC's (stable US from past 2 weeks) ASSESSMENT AND PLAN: 21yo female with incomplete Discussed R/B/A and patient wishes to proceed with IPAS. Meds sent to pharmacy & patient will return later today for procedure. UNIVERSAL PROTOCOL / SAFETY CHECKLIST Procedure to be Performed: IPAS Sign In: A Moment of CARE was completed. Personnel directly involved with the procedure wore the appropriate PPE (Personal Protective Equipment). Patient/Surrogate Stated/Verified: PATIENT VERIFIED(optional for EMERGENT procedures): Patient name, Date of , Relevant allergies, and The intended procedure Time Out Communication: Intended patient and procedure match the source documents. Consent documented and matches the intended procedure. Sign Out: SIGN OUT (optional for EMERGENT procedures): All specimen containers correctly labeled. All instruments, equipment, possible retained foreign bodies accounted for. Post-procedure follow-up management communicated and Plan of Care Visit completed when applicable. Wayne Greer MD Procedure note: Speculum was placed in the vagina. After prepping the cervix with betadine paracervical block was performed using 10cc of 1% lidocaine with 1:100,000 epi. Cervix was grasped with single tooth tenaculum. Cervix was dilated. Using sterile technique, the Manual Vacuum Aspiration device with size 6 cannula was inserted into the uterus and contents were evacuated. Post-procedure ultrasound confirmed no retained tissue. Post-procedure vital signs were obtained and stable Specimen was sent to pathology Patient tolerated procedure well. PLAN: Patient was advised to observe for signs and symptoms of infection including but not limited to fever, malodorous vaginal discharge and/or pain. Bleeding expectations were reviewed. Follow up: 1 week or PRN Wayne Greer MD documented in this encounterSelect [facility] Miscellaneous Notes* Telephone Encounter - Manjula Corea APRN.CNM - 07/27/2022 4:54 PM EST Received call from [facility] ED on patient being there for vaginal bleeding. She presented withheavy vaginal bleeding. She has a known missed miscarriage. Patient seen by office here and is s/p 2 doses of Cytotec. Per ED physician, H&H is stable, minimal bleeding in vaginal vault upon examination. NO ultrasound completed- suggested an ultrasound to see if any retained products. Patient has follow up visit in our office on 08/01/22. I think she will need a sooner follow up visit. Please assist with scheduling with Dr. Greer. Thank you Manjula Corea APRN.CNM documented in this encounterSelect [facility]03-07-2023 Miscellaneous Notes* Telephone Encounter - Wayne Greer MD - 07/25/2022 12:27 PM EST Yes. Sunday is fine. Wayne Greer MD * Telephone Encounter - Gale Carter RN - 07/25/2022 10:48 AM EST No available openings with you until Sunday next week. Is this just for a bedside ultrasound at a visit with you? * Telephone Encounter - Wayne Greer MD - 07/25/2022 10:43 AM EST I would have her follow up this Sunday or next week with me for an US. Wayne Greer MD documented in this encounterSelect [facility]-27-[facility]23 NoteHNO ID: [id number] Author: Wayne Greer MD Service: ? Author Type: Physician Type: Progress Notes Filed: 07/17/2022 2:41 PM Note Text: Caleb YOUNGER is a 21 year old female who presents for problem visit. HPI: Patient reports minimal bleeding after her 2nd dose of cytotec. Today she denies any VB. OB History T1 L1 SAB1 IAB0 Ectopic0 Multiple0 Live Births1 Gear Shaper History LMP: 05/10/2022 (Exact Date), Recent Age at Menarche: Age at First : Age at Menopause: Gear Shaper History Comments: Sexual Activity: No sexual activity data on record; No partner data on record Contraception: No contraception data on record PAST MEDICAL HISTORY Diagnosis Date Anemia Anxiety and depression Tachycardia PAST SURGICAL HISTORY Procedure Laterality Date DELIVERY ONLY [facility] 07/18/2021 Dr Cathleen Baker FAMILY HISTORY Problem Relation Age of Onset Asthma Mother No Known Problems Father other (lung disease) Sister No Known Problems Sister No Known Problems Brother No Known Problems Brother No Known Problems Brother No Known Problems Brother No Known Problems Brother other (stomach cancer) Maternal Grandmother other (bone cancer) Maternal Grandfather No Known Problems Paternal Grandmother No Known Problems Paternal Grandfather No Known Problems Daughter Social History Tobacco Use Smoking status: Former Types: Cigarettes Smokeless tobacco: Never Vaping Use Vaping Use: Former Start date: 06/21/2022 Substances: Nicotine, Flavoring Substance Use Topics Alcohol use: Not Currently Comment: Occasionally Drug use: Never Current Outpatient Medications Medication Sig pyridoxine, vitamin B6, (VITAMIN B-6) 50 mg tablet Take 1 tablet by mouth twice daily. prental multivitamin 27 mg iron- 800 mcg tablet Take 1 tablet by mouth once daily. No current facility-administered medications for this visit. Allergies As of Date: 07/17/2022 Allergen Noted Reaction BACTRIM [SULFAMETHOXAZOLE-TRIMETH*07/06/2022 Hives LAVENDER 07/06/2022 Hives PORK DERIVED (PORCINE) 07/06/2022 Hives Fully Assessed 07/11/2022 Allergies and current medication updated:Yes EXAM: LMP 05/10/2022 GENERAL: pleasant, female in no apparent distress PELVIC: external genitalia normal, normal appearing perineal body and perianal region ASSESSMENT AND PLAN: 21yo female with incomplete TVUS shows endometrium measuring 2cm with likely retained POC's (stable US from last week) . Discussed R/B/A treatment options and patient desires observation for 1 week. When patient is ready she is a good candidate for an IPAS. Reviewed bleeding precautions Medical Decision Making: Problems: Low: Acute, uncomplicated illness or injury Risk: Low: Low risk from testing/treatment Medical Decision Making Level: 3 - Low Wayne Greer [facility]02-27-2023 History of Present illness Narrative* Wayne Greer MD - 07/17/2022 2:15 PM EST Caleb YOUNGER is a 21 year old female who presents for problem visit. HPI: Patient reports minimal bleeding after her 2nd dose of cytotec. Today she denies any VB. OB History T1 L1 SAB1 IAB0 Ectopic0 Multiple0 Live Births1 Gear Shaper History LMP: 05/10/2022 (Exact Date), Recent Age at Menarche: Age at First : Age at Menopause: Gear Shaper History Comments: Sexual Activity: No sexual activity data on record; No partner data on record Contraception: No contraception data on record PAST MEDICAL HISTORY Diagnosis Date Anemia Anxiety and depression Tachycardia PAST SURGICAL HISTORY Procedure Laterality Date DELIVERY ONLY [facility] 07/18/2021 Dr Cathleen Baker FAMILY HISTORY Problem Relation Age of Onset Asthma Mother No Known Problems Father other (lung disease) Sister No Known Problems Sister No Known Problems Brother No Known Problems Brother No Known Problems Brother No Known Problems Brother No Known Problems Brother other (stomach cancer) Maternal Grandmother other (bone cancer) Maternal Grandfather No Known Problems Paternal Grandmother No Known Problems Paternal Grandfather No Known Problems Daughter Social History Tobacco Use Smoking status: Former Types: Cigarettes Smokeless tobacco: Never Vaping Use Vaping Use: Former Start date: 06/21/2022 Substances: Nicotine, Flavoring Substance Use Topics Alcohol use: Not Currently Comment: Occasionally Drug use: Never Current Outpatient Medications Medication Sig pyridoxine, vitamin B6, (VITAMIN B-6) 50 mg tablet Take 1 tablet by mouth twice daily. prental multivitamin 27 mg iron- 800 mcg tablet Take 1 tablet by mouth once daily. No current facility-administered medications for this visit. Allergies As of Date: 07/17/2022 Allergen Noted Reaction BACTRIM [SULFAMETHOXAZOLE-TRIMETH*07/06/2022 Hives LAVENDER 07/06/2022 Hives PORK DERIVED (PORCINE) 07/06/2022 Hives Fully Assessed 07/11/2022 Allergies and current medication updated:Yes EXAM: LMP 05/10/2022 GENERAL: pleasant, female in no apparent distress PELVIC: external genitalia normal, normal appearing perineal body and perianal region ASSESSMENT AND PLAN: 21yo female with incomplete TVUS shows endometrium measuring 2cm with likely retained POC's (stable US from last week) . Discussed R/B/A treatment options and patient desires observation for 1 week. When patient is ready she guzman good candidate for an IPAS. Reviewed bleeding precautions Medical Decision Making: Problems: Low: Acute, uncomplicated illness or injury Risk: Low: Low risk from testing/treatment Medical Decision Making Level: 3 - Low Wayne Greer MD documented in this encounterSelect [facility]23 NoteHNO ID: [id number] Author: Wayne Greer MD Service: ? Author Type: Physician Type: Progress Notes Filed: 07/11/2022 3:45 PM Note Text: Caleb YOUNGER is a 21 year old female who presents for problem visit. HPI: Patient presents after taking cytotec. She reports some increased bleeding that has since slowed down. OB History T1 L1 SAB0 IAB0 Ectopic0 Multiple0 Live Births1 Gear Shaper History LMP: 05/10/2022 (Exact Date), Age at Menarche: Age at First : Age at Menopause: Gear Shaper History Comments: Sexual Activity: No sexual activity data on record; No partner data on record Contraception: No contraception data on record PAST MEDICAL HISTORY Diagnosis Date Anemia Anxiety and depression Tachycardia PAST SURGICAL HISTORY Procedure Laterality Date DELIVERY ONLY [facility] 07/18/2021 Dr Cathleen Baker FAMILY HISTORY Problem Relation Age of Onset Asthma Mother No Known Problems Father other (lung disease) Sister No Known Problems Sister No Known Problems Brother No Known Problems Brother No Known Problems Brother No Known Problems Brother No Known Problems Brother other (stomach cancer) Maternal Grandmother other (bone cancer) Maternal Grandfather No Known Problems Paternal Grandmother No Known Problems Paternal Grandfather No Known Problems Daughter Social History Tobacco Use Smoking status: Former Types: Cigarettes Smokeless tobacco: Never Vaping Use Vaping Use: Former Start date: 06/21/2022 Substances: Nicotine, Flavoring Substance Use Topics Alcohol use: Not Currently Comment: Occasionally Drug use: Never Current Outpatient Medications Medication Sig pyridoxine, vitamin B6, (VITAMIN B-6) 50 mg tablet Take 1 tablet by mouth twice daily. prental multivitamin 27 mg iron- 800 mcg tablet Take 1 tablet by mouth once daily. No current facility-administered medications for this visit. Allergies As of Date: 07/11/2022 Allergen Noted Reaction BACTRIM [SULFAMETHOXAZOLE-TRIMETH*07/06/2022 Hives LAVENDER 07/06/2022 Hives PORK DERIVED (PORCINE) 07/06/2022 Hives Fully Assessed 07/11/2022 Allergies and current medication updated:Yes EXAM: BP 114/62 Wt 155 lb 6.4 oz (70.5kg) LMP 05/10/2022 GENERAL: pleasant, female in no apparent distress PELVIC: external genitalia normal, normal appearing perineal body and perianal region ASSESSMENT AND PLAN: 21yo female with incomplete TVUS shows endometrium measuring 2cm with likely retained POC's. Discussed R/B/A AND patient will proceed with a 2nd dose of vaginal cytotec - use reviewed. Reviewed bleeding precautions Follow up Sunday or PRN Medical Decision Making: Problems: Low: Acute, uncomplicated illness or injury Risk: Moderate: Drug management Medical Decision Making Level: 3 - Low Wayne Greer [facility]02-21-2023 History of Present illness Narrative* Wayne Greer MD - 07/11/2022 2:43 PM EST Caleb YOUNGER is a 21 year old female who presents for problem visit. HPI: Patient presents after taking cytotec. She reports some increased bleeding that has since slowed down. OB History T1 L1 SAB0 IAB0 Ectopic0 Multiple0 Live Births1 Gear Shaper History LMP: 05/10/2022 (Exact Date), Age at Menarche: Age at First : Age at Menopause: Gear Shaper History Comments: Sexual Activity: No sexual activity data on record; No partner data on record Contraception: No contraception data on record PAST MEDICAL HISTORY Diagnosis Date Anemia Anxiety and depression Tachycardia PAST SURGICAL HISTORY Procedure Laterality Date DELIVERY ONLY [facility] 07/18/2021 Dr Cathleen Baker FAMILY HISTORY Problem Relation Age of Onset Asthma Mother No Known Problems Father other (lung disease) Sister No Known Problems Sister No Known Problems Brother No Known Problems Brother No Known Problems Brother No Known Problems Brother No Known Problems Brother other (stomach cancer) Maternal Grandmother other (bone cancer) Maternal Grandfather No Known Problems Paternal Grandmother No Known Problems Paternal Grandfather No Known Problems Daughter Social History Tobacco Use Smoking status: Former Types: Cigarettes Smokeless tobacco: Never Vaping Use Vaping Use: Former Start date: 06/21/2022 Substances: Nicotine, Flavoring Substance Use Topics Alcohol use: Not Currently Comment: Occasionally Drug use: Never Current Outpatient Medications Medication Sig pyridoxine, vitamin B6, (VITAMIN B-6) 50 mg tablet Take 1 tablet by mouth twice daily. prental multivitamin 27 mg iron- 800 mcg tablet Take 1 tablet by mouth once daily. No current facility-administered medications for this visit. Allergies As of Date: 07/11/2022 Allergen Noted Reaction BACTRIM [SULFAMETHOXAZOLE-TRIMETH*07/06/2022 Hives LAVENDER 07/06/2022 Hives PORK DERIVED (PORCINE) 07/06/2022 Hives Fully Assessed 07/11/2022 Allergies and current medication updated:Yes EXAM: BP 114/62 Wt 155 lb 6.4 oz (70.5kg) LMP 05/10/2022 GENERAL: pleasant, female in no apparent distress PELVIC: external genitalia normal, normal appearing perineal body and perianal region ASSESSMENT AND PLAN: 21yo female with incomplete TVUS shows endometrium measuring 2cm with likely retained POC's. Discussed R/B/A & patient willproceed with a 2nd dose of vaginal cytotec - use reviewed. Reviewed bleeding precautions Follow up Sunday or PRN Medical Decision Making: Problems: Low: Acute, uncomplicated illness or injury Risk: Moderate: Drug management Medical Decision Making Level: 3 - Low Wayne Greer MD documented in this encounterSelect [facility]23 NoteHNO ID: [id number] Author: Wayne Greer MD Service: ? Author Type: Physician Type: Progress Notes Filed: 07/07/2022 3:16 PM Note Text: OB point of care ultrasound was performed. See imaging tab for details. [facility] Miscellaneous Notes* Telephone Encounter - Neetu Watts RN - 07/07/2022 4:50 PM EST Patient called and notified of medication. Follow up appointment scheduled. Neetu Watts RN * Telephone Encounter - Wayne Greer MD - 07/07/2022 4:43 PM EST Cytotec sent in visit encounter. Please schedule follow up with me next week at least 48 hours after she has taken the medication. Wayne Greer MD * Telephone Encounter - Gale Carter RN - 07/07/2022 4:23 PM EST Patient seen in office today. Missed AB. Called the office. Would like Cytotec sent to [facility] in [place]. Gale Carter RN documented in this encounterSelect Medical [facility]ty [facility]23 NoteHNO ID: [id number] Author: Wayne Greer MD Service: ? Author Type: Physician Type: Progress Notes Filed: 07/07/2022 4:43 PM Note Text: Machine Umbrella Tipper offered: Patient declines. INITIAL OB ASSESSMENT OB Provider: Wayne Greer MD HPI: Caleb YOUNGER is a 21 year old female here to establish Obstetrical Care. Patient's last menstrual period was 05/10/2022 (exact date). from OB Dating Form. Complaints: nausea without vomiting was planned. OB History T1 L1 SAB0 IAB0 Ectopic0 Multiple0 Live Births1 Prior : yes x 1 History of 4th degree laceration: No Patient's Risk Screening for delivery: History of abnormal pap: No Prior treatment for cervical dysplasia: none. History of STDs: None Marital Status: Partner: Name: Shan Age: 24 Occupation: Car detailing Gender: male PAST MEDICAL HISTORY Diagnosis Date Anemia Anxiety and depression Tachycardia PAST SURGICAL HISTORY Procedure Laterality Date DELIVERY ONLY [facility] 07/18/2021 Dr Cathleen Baker Current Outpatient Medications on File Prior to Visit Medication Sig prental multivitamin 27 mg iron- 800 mcg tablet Take 1 tablet by mouth once daily. No current facility-administered medications on file prior to visit. Review of Systems: GENERAL: Negative for: Fever or Chills HEENT: Negative for: Headache, Impaired Vision, Ringing in Ears, Nosebleeds NECK: Negative for: Swelling, Pain, Stiffness RESPIRATORY: Negative for: Cough, Shortness of breath, Wheezing GASTROINTESTINAL: Negative for: Heartburn, Constipation, Diarrhea, Blood in stool, Vomiting MUSCULOSKELETAL: Negative for: Muscle or joint pain, stiffness, Joint swelling NEUROLOGIC/PSYCHIATRIC: Negative for: Weakness, Paralysis, Numbness, Tingling, Tremor, Anxiety, Depression, Memory loss SKIN: Negative for: Rash, Itching GENITOURINARY: Negative for: vaginal itching, vaginal discharge, hematuria or dysuria PHYSICAL EXAM: BP 102/60 Ht 5' 5 (1.65m) Wt 151 lb 6.4 oz (68.7kg) LMP 05/10/2022 BMI 25.19 kg/(m2). GENERAL: pleasant female in no apparent distress DERMATOLOGY: Normal, without lesions, non-icteric, and non-hirsute NECK: Supple, full range of motion, no adenopathy, and thyroid normal CHEST: Normal inspiratory effort BREAST: soft, non-tender, symmetric, no dominant mass, normal nipple-areolar complex, no lymphadenopathy, and no nipple discharge ABDOMEN: soft, non-tender, and no masses NEURO: alert and oriented x3,exam grossly non-focal PELVIS: External genitalia normal without lesions. Perineal body intact. No vaginal or cervical lesions. Cervix closed. Uterus 7 week size. No adnexal masses or tenderness. Clinical Pelvimetry: Pelvimetry clinically assessed as adequate Limited OB ultrasound exam: single intrauterine and no FCA OB Risk Screening: Completed, no positive findings documented. ASSESSMENT: 21 year old with missed at 6AND4 wks gestational age PLAN: 1) Reviewed US findings showing missed . Reviewed etiologies and treatment options (medical AND surgical). Bleeding AND pain precautions reviewed. Patient called the office after the visit and wishes to proceed with cytotec. Cytotec send to pharmacy and patient to follow up next week. Medical Decision Making: Problems: Moderate: New problem with uncertain prognosis Risk: Moderate: Drug management Medical Decision Making Level: 4 - Moderate Follow up in 1 weeks or sooner prn. [facility] Gre[facility]02-17-[facility] History of Present illness Narrative* Wayne Greer MD - 07/07/2022 2:01 PM EST Machine Umbrella Tipper offered: Patient declines. INITIAL OB ASSESSMENT OB Provider: Wayne Greer MD HPI: Caleb YOUNGER is a 21 year old female here to establish Obstetrical Care. Patient's last menstrual period was 05/10/2022 (exact date). from OB Dating Form. Complaints: nausea without vomiting was planned. OB History T1 L1 SAB0 IAB0 Ectopic0 Multiple0 Live Births1 Prior : yes x 1 History of 4th degree laceration: No Patient's Risk Screening for delivery: History of abnormal pap: No Prior treatment for cervical dysplasia: none. History of STDs: None Marital Status: Partner: Name: Shan Age: 24 Occupation: Car detailing Gender: male PAST MEDICAL HISTORY Diagnosis Date Anemia Anxiety and depression Tachycardia PAST SURGICAL HISTORY Procedure Laterality Date DELIVERY ONLY HSG 07/18/2021 Dr Cathleen Baker Current Outpatient Medications on File Prior to Visit Medication Sig prental multivitamin 27 mg iron- 800 mcg tablet Take 1 tablet by mouth once daily. No current facility-administered medications on file prior to visit. Review of Systems: GENERAL: Negative for: Fever or Chills HEENT: Negative for: Headache, Impaired Vision, Ringing in Ears, Nosebleeds NECK: Negative for: Swelling, Pain, Stiffness RESPIRATORY: Negative for: Cough, Shortness of breath, Wheezing GASTROINTESTINAL: Negative for: Heartburn, Constipation, Diarrhea, Blood in stool, Vomiting MUSCULOSKELETAL: Negative for: Muscle or joint pain, stiffness, Joint swelling NEUROLOGIC/PSYCHIATRIC: Negative for: Weakness, Paralysis, Numbness, Tingling, Tremor, Anxiety, Depression, Memory loss SKIN: Negative for: Rash, Itching GENITOURINARY: Negative for: vaginal itching, vaginal discharge, hematuria or dysuria PHYSICAL EXAM: BP 102/60 Ht 5' 5 (1.65m) Wt 151 lb 6.4 oz (68.7kg) LMP 05/10/2022 BMI 25.19 kg/(m^2). GENERAL: pleasant female in no apparent distress DERMATOLOGY: Normal, without lesions, non-icteric, and non-hirsute NECK: Supple, full range of motion, no adenopathy, and thyroid normal CHEST: Normal inspiratory effort BREAST: soft, non-tender, symmetric, no dominant mass, normal nipple-areolar complex, no lymphadenopathy, and no nipple discharge ABDOMEN: soft, non-tender, and no masses NEURO: alert and oriented x3,exam grossly non-focal PELVIS: External genitalia normal without lesions. Perineal body intact. No vaginal or cervical lesions. Cervix closed. Uterus 7 week size. No adnexal masses or tenderness. Clinical Pelvimetry: Pelvimetry clinically assessed as adequate Limited OB ultrasound exam: single intrauterine and no FCA OB Risk Screening: Completed, no positive findings documented. ASSESSMENT: 21 year old with missed at 6&4 wks gestational age PLAN: 1) Reviewed US findings showing missed . Reviewed etiologies and treatment options (medical& surgical). Bleeding & pain precautions reviewed. Patient called the office after the visit and wishes to proceed with cytotec. Cytotec send to pharmacy and patient to follow up next week. Medical Decision Making: Problems: Moderate: New problem with uncertain prognosis Risk: Moderate: Drug management Medical Decision Making Level: 4 - Moderate Follow up in 1 weeks or sooner prn. Wayne Greer MD [facility] Instructions* Patient Instructions* Eulalia Jasso MA - 07/07/2022 2:01 PM EST Please select the following link to access the [facility] Your Guide to a Healthy . [email or web address] documented in this encounterSelect [facility] NoteHNO ID: [id number] Author: Clary Dailey RN Service: ? Author Type: ? Type: Progress Notes Filed: 07/06/2022 5:32 PM Note Text: # 1 - Date: 07/03/18, Sex: Male, Weight: 7 lb 8 oz (3.402 kg), GA: 39w0d, Delivery: , Low Transverse, Apgar1: None, Apgar5: None, Living: Living, Comments: distress # 2 - Date: None, Sex: None, Weight: None, GA: None, Delivery: None, Apgar1: None, Apgar5: None, Living: None, Comments: None[facility] History of Present illness Narrative* Clary Dailey RN - 07/06/2022 5:23 PM EST # 1 - Date: 07/03/18, Sex: Male, Weight: 7 lb 8 oz (3.402 kg), GA: 39w0d, Delivery: , Low Transverse, Apgar1: None, Apgar5: None, Living: Living, Comments: distress # 2 - Date: None, Sex: None, Weight: None, GA: None, Delivery: None, Apgar1: None, Apgar5: None, Living: None, Comments: None documented in this encounter[facility] Miscellaneous Notes* Quick Notes - Clary Dailey RN - 07/06/2022 5:23 PM EST DISTANCE HEALTH VISIT This Team Access Model visit is a phone encounter. It required patient-provider interaction for themedical decision making as documented below. Caleb YOUNGER is a 21 year old female seen for PNOB. Patient has a history of a by on June 23, 2018 for distress. Patient believes she wants to have a repeat . BRET s on and ordered and patient is asked to watch these prior to her new OB appointment with Dr. Greer.Pt has a history of anxiety/depression diagnosed at age 11 and treated by Kenya Mitchell at [facility]. She has been off medication for 1 year. She believes she is doing well off medication. She denies any history of depression. Discussed increased risks ofdepression during and and importance of reporting the development or worseningof symptoms should they occur. Patient states she did have suicidal thoughts as a teenager but nonesince then. Denies ever having any psychiatric hospitalizations. Patient states she has a history of tachycardia that was diagnosed in 2017 and treated by Kenya Mitchell. She states she took meclizine for short time. States she did not see a human resources officer for this but she did wear a heart monitor and had a EKG. She states she was last seen for this issue in 2018. Patient desires nuchal ultrasound.Contact information for [facility] given to patient to check on insurance coverage. Patient declines genetic carrier screening testing.Clary Dailey RN documented in this encounterSelect [facility]* Diagnosis with history of section, antepartum- Primary History of depression Personal history of other mental disorder History of tachycardia Other specified conditions influencing health status Patient request for diagnostic testing Other specified examination documented in this encounter [facility] note* Diagnosis Missed - Primary 8 weeks gestation of state, incidental documented in this encounter [facility] note* Diagnosis Incomplete - Primary Unspecified , without mention of complication, incomplete documented in this encounter [facility] note* Diagnosis Incomplete - Primary Unspecified , without mention of complication, incomplete documented in this encounter [facility] note* Diagnosis Incomplete spontaneous without complication- Primary Incomplete spontaneous without mention of complication documented in this encounter [facility] note* Diagnosis Bleeding in early - Primary Unspecified hemorrhage in early , unspecified as to episode of care documented in this encounter [facility] note* Diagnosis Current with history of spontaneous during prior - Primary with history of section, antepartum History of depression Personal history of other mental disorder History of tachycardia Other specified conditions influencing health status Patient request for diagnostic testing Other specified examination documented in this encounter [facility] note* Diagnosis Missed - Primary documented in this encounter [facility] note* Diagnosis Incomplete spontaneous without complication- Primary Incomplete spontaneous without mention of complication 7 weeks gestation of state, incidental documented in this encounter [facility] note* Diagnosis Missed - Primary 7 weeks gestation of state, incidental documented in this encounter [facility] note* Diagnosis Complete - Primary Unspecified , without mention of complication, complete documented in this encounter [facility] note* Diagnosis Previous recurrent miscarriages affecting , antepartum- Primary with history of section, antepartum History of depression Personal history of other mental disorder History of tachycardia Other specified conditions influencing health status Patient request for diagnostic testing Other specified examination documented in this encounter [facility] note* Diagnosis Previous recurrent miscarriages affecting , antepartum- Primary with history of section, antepartum documented in this encounter [facility] note* Diagnosis 13 weeks gestation of - Primary state, incidental Encounter for screening of mother Unspecified screening Encounter for supervision of other normal in first trimester documented in this encounter [facility] note* Diagnosis Encounter for anatomic survey- Primary Encounter for screening of mother Unspecified screening 18 weeks gestation of state, incidental documented in this encounter [facility] for referral (narrative)* Diagnostic Procedure Only (Routine) - Authorized Specialty Diagnoses / Procedures Referred By Contac t Referred To Contact [facility] Diagnoses Previous recurrent miscarriages affecting , antepartum with history of section, antepartum Procedures NUCHAL TRANSLUCENCY WHI US NUCHAL TRANSLUCENCY 1ST GESTATION Wayne Greer MD [address] [place] [address] [facility] [address] [place] [address] Referral ID Status Reason Start Date Expiration Date Visits Requested Visits Authorized [id number] Authorized Auto-Generat ed Referral 3 03/05/2024 1 1 [facility] for referral (narrative)* Diagnostic Procedure Only (Routine) - Authorized Specialty Diagnoses / Procedures Referred By Contac t Referred To Contact [facility] Diagnoses Encounter for screening of mother Encounter for supervision of other normal in first trimester Procedures OBSTETRIC ULTRASOUND WHI US PREG UTERUS AFTER 1ST TRIMEST 1/ GESTATION Dean Patterson MD [address] [place] [address] [facility] [address] [place] [address] Referral ID Status Reason Start Date Expiration Date Visits Requested Visits Authorized [id number] Authorized Auto-Generat ed Referral 03/26/2023 03/25/2024 1 1 [facility] Summary Purpose Family History No Family History Records FoundNo Family History Records FoundNo Family History Records FoundNo Family History Records Found Advance Directives No Advanced Directives Records FoundNo Advanced Directives Records FoundNo Advanced Directives Records FoundNo Advanced Directives Records Found Medications Administered Section Inactive Administered Medications - up to 3 most recent administrations Medication Order MAR Action Action Date Dose Rate Site keTORolac 60 mg injection (TORADOL) 60 mg, INTRAMUSCULAR, ONCE, 1 dose, On Sun07/28/22 at 1500, Ketorolac (Toradol) is indicated for the short-term (up to 5 days) management of moderately severe acute pain. Continuation of ketorolac (Toradol) beyond 5 days increases the risk of developing serious adverse events. Please verify the duration of therapy for ketorolac (Toradol)., If ordered PRN for pain, patient/guardian may elect to receive this medication for higher pain levels INSTEAD of the opioid, if preferred: Yes Given 07/28/2022 3:01 PM EST 60 mg Buttocks, Right Inactive Administered Medications - up to 3 most recent administrations Medication Order MAR Action Action Date Dose Rate Site keTORolac 60 mg injection (Toradol) 60 mg, INTRAMUSCULAR, ONCE, 1 dose, On Sun11/20/22 at 0830, Ketorolac (Toradol) is indicated for the short-term (up to 5 days) management of moderately severe acute pain. Continuation of ketorolac (Toradol) beyond 5 days increases the risk of developing serious adverse events. Please verify the duration of therapy for ketorolac (Toradol)., If ordered PRN for pain, patient/guardian may elect to receive this medication for higher pain levels INSTEAD of the opioid, if preferred: Yes Given 11/20/2022 8:48 AM EDT 60 mg Buttocks, Left Health Concerns Problem Noted Date Diagnosed Date [facility] - [facility] 03/06/2023 [facility] [place] 03/06/2023 Problem Noted Date Diagnosed Date [facility] - [facility] 03/06/2023 [facility] [place] 03/06/2023 Problem Noted Date Diagnosed Date [facility] - [facility] 03/06/2023 [facility] [place] 03/06/2023 Additional Source Comments INFORMATION SOURCE (unrecogn ized section and content) DATE CREATED AUTHOR AUTHOR'S ORGANIZ ATION 05/29/2021 [facility] DATE CREATED AUTHOR AUTHOR'S ORGANIZ ATION 11/18/2022 [facility] DATE CREATED AUTHOR AUTHOR'S ORGANIZ ATION 06/01/2023 [facility] Comments (unrecognize d section and content) In the event this informatio n is protected by the Federal Confidentiality of Alcohol and Drug Abuse Patient Records regulations: The Federal rules restrict any use of the information to criminally investigate or prosecute any alcohol or drug abuse patient.[facility] the event this information is protected by the Federal Confidentiality of Alcohol and Drug Abuse Patient Records regulations: The Federal rules restrict any use of the information to criminally investigate or prosecute any alcohol or drug abuse patient.[facility] the event this information is protected by the Federal Confidentiality of Alcohol and Drug Abuse Patient Records regulations: The Federal rules restrict any use of the information to criminally investigate or prosecute any alcohol or drug abuse patient.[facility] the event this information is protected by the Federal Confidentiality of Alcohol and Drug Abuse Patient Records regulations: The Federal rules restrict any use of the information to criminally investigate or prosecute any alcohol or drug abuse patient.[facility] the event this information is protected by the Federal Confidentiality of Alcohol and Drug Abuse Patient Records regulations: The Federal rules restrict any use of the information to criminally investigate or prosecute any alcohol or drug abuse patient.[facility] the event this information is protected by the Federal Confidentiality of Alcohol and Drug Abuse Patient Records regulations: The Federal rules restrict any use of the information to criminally investigate or prosecute any alcohol or drug abuse patient.[facility] the event this information is protected by the Federal Confidentiality of Alcohol and Drug Abuse Patient Records regulations: The Federal rules restrict any use of the information to criminally investigate or prosecute any alcohol or drug abuse patient.[facility] the event this information is protected by the Federal Confidentiality of Alcohol and Drug Abuse Patient Records regulations: The Federal rules restrict any use of the information to criminally investigate or prosecute any alcohol or drug abuse patient.[facility] the event this information is protected by the Federal Confidentiality of Alcohol and Drug Abuse Patient Records regulations: The Federal rules restrict any use of the information to criminally investigate or prosecute any alcohol or drug abuse patient.[facility] the event this information is protected by the Federal Confidentiality of Alcohol and Drug Abuse Patient Records regulations: The Federal rules restrict any use of the information to criminally investigate or prosecute any alcohol or drug abuse patient.[facility] the event this information is protected by the Federal Confidentiality of Alcohol and Drug Abuse Patient Records regulations: The Federal rules restrict any use of the information to criminally investigate or prosecute any alcohol or drug abuse patient.[facility] the event this information is protected by the Federal Confidentiality of Alcohol and Drug Abuse Patient Records regulations: The Federal rules restrict any use of the information to criminally investigate or prosecute any alcohol or drug abuse patient.[facility] the event this information is protected by the Federal Confidentiality of Alcohol and Drug Abuse Patient Records regulations: The Federal rules restrict any use of the information to criminally investigate or prosecute any alcohol or drug abuse patient.[facility] the event this information is protected by the Federal Confidentiality of Alcohol and Drug Abuse Patient Records regulations: The Federal rules restrict any use of the information to criminally investigate or prosecute any alcohol or drug abuse patient.[facility] the event this information is protected by the Federal Confidentiality of Alcohol and Drug Abuse Patient Records regulations: The Federal rules restrict any use of the information to criminally investigate or prosecute any alcohol or drug abuse patient.[facility] the event this information is protected by the Federal Confidentiality of Alcohol and Drug Abuse Patient Records regulations: The Federal rules restrict any use of the information to criminally investigate or prosecute any alcohol or drug abuse patient.[facility] the event this information is protected by the Federal Confidentiality of Alcohol and Drug Abuse Patient Records regulations: The Federal rules restrict any use of the information to criminally investigate or prosecute any alcohol or drug abuse patient.[facility] Reason for Visit (unrecogniz ed section and content) Reason Comments Medication for Missed AB Reason Comments Follow Up Reason Comments Patient Update Reason Comments Early OB Bleeding Reason Comments early ob bleeding Reason Onset Date Comments Patient Update 11/15/2022 Reason Comments Initial OB Visit Reason Onset Date Comments Care 03/26/2023 Reason Comments US Specialty Diagnoses / Procedures Referred By Claudia lamar Referred To Contact [facility] Diagnoses Encounter for screening of mother Encounter for supervision of other normal in first trimester Procedures OBSTETRIC ULTRASOUND WHI US PREG UTERUS AFTER 1ST TRIMEST GESTATION Dean Patterson MD [address] [place] [address] [facility] [address] [place] [address] Referral ID Status Reason Start Date Expiration Date V isits Requested Visits Authorized [id number] Closed Auto-Generate d Referral 03/26/2023 03/25/2024 1 1 FOR RECORDS PERTAINING TO PATIENTS WHO ARE OR HAVE BEEN ENROLLED IN A CHEMICAL DEPENDENCY/SUBSTANCEABUSE PROGRAM, SOME INFORMATION MAY BE OMITTED. This clinical summary was aggregated from multiple sources. Caution should be exercised in using it in the provision of clinical care. This summary normalizes information from multiple sources, and as a consequence, information in this document may materially change the coding, format and clinical context of patient data. In addition, data may be omitted in some cases. CLINICAL DECISIONS SHOULD BE BASED ON THE PRIMARY CLINICAL RECORDS. [employer] [facility]. provides no warranty or guarantee of the accuracy or completeness of information in this document.
[2023-06-29] MEDS: Ceftriaxone 1 GM/50 ML BAG IV (17:47)
== END 2023-06-29 18:31 | disposition home or self-care (01) ==
PROVIDERS: Emergency Provider Emergency Medicine; PCP Nurse Practitioner Family; Visit Provider Emergency Medicine
DX: R31.29 Other microscopic hematuria (principal); Z3A.27 27 weeks gestation of pregnancy; N23 Unspecified renal colic; F17.290 Nicotine dependence, other tobacco product, uncomplicated; O99.891 Other specified diseases and conditions complicating pregnancy; O99.332 Smoking (tobacco) complicating pregnancy, second trimester
CPT/HCPCS: 76770; 80048; 85025; 96361; 96365; 96375; 99284; J7030; A4216; J2405

== ENCOUNTER 2023-09-08 15:10 | Outpatient (CLI) | payer MEDICAID, SELFPAY ==
[2023-09-08 15:31] VITALS: BMI 31.0
[2023-09-08 15:37] VITALS: BP 125/68; PULSE 114; RESP 16; TEMP 37.3; O2SAT 97
[2023-09-08 16:06] LABS: ROM Internal Control Test YES-OK TO RESULT pt. (Internal QC); ROM Patient Test Negative (Negative); Record Kit Lot#, ROM+ K1409
--- NOTE | 2023-09-08 19:55 | OB.TRI.HP_ITS ---
HPI - General HPI Narrative MADISON SANTIZO, is a 22 F who presents with leaking of fluid. Maternal Data Information BLANCA Calculator Estimated Delivery Date Method Current WG Current Estimate 09/29/23 Manual 37w 0d PFSH PFSH Medical History Bulimia Depression Home Medications hydrocodone-acetaminophen 5-325mg 5mg-325mg 1 tab PO Q6H PRN PRN Pain 4 days #16 TABLETS 06/29/23 [Rx Last Taken Unknown] [id number] 1 mg tablet 1 tab PO DAILY 09/08/23 [History Last Taken 09/08/23] Allergy/AdvReac Type Severity Reaction Status Date / Time sulfamethoxazole Allergy Vomiting Verified 06/29/23 14:11 [From Bactrim] trimethoprim [From Bactrim] Allergy Vomiting Verified 06/29/23 14:11 Social History Smoking Status: Current some day smoker tobacco type: e-cigarettes History 2 Elective abortions Hx Para 0 Spontaneous abortions Hx # Term Pregnancies Ectopic pregnancies Hx # Pregnancies Multiple births # of living children ROS Eyes Eyes: Denies blurry vision Cardiovascular Cardiovascular: Reports none; Denies chest pain at rest, chest pain with activity or dizziness Respiratory/Chest Respiratory/Chest: Denies cough or dyspnea Gastrointestinal Gastrointestinal: Reports none and other; Denies diarrhea or vomiting Genitourinary Genitourinary: Denies dysuria Musculoskeletal Musculoskeletal: Reports none Integumentary Integumentary: Reports none; Denies rash Neurologic Neurologic: Denies dizziness, headache(s) or other visual disturbances Psychiatric Psychiatric: Reports none Physical Exam Const alert and no apparent distress General Appearance: cooperative Orientation / Consciousness: awake Exam Limitations: no limitations HEENT normocephalic Eyes General Eye: normal appearance of both eyes Neck full ROM General: normal visual inspection Chest inspection of chest normal Chest: symmetrical chest wall rise Resp normal respiratory effort and normal air movement Effort and Inspection: symmetric chest movement Auscultation: clear to auscultation bilaterally Cardio regular rate GI soft to palpation, non-tender and non-distended Inspection: and other Back/Spine normal ROM Extremity full ROM, normal capillary refill and no calf tenderness General Extremity: normal exam except as noted Skin no rashes or lesions noted Neuro oriented x3 and CN's II-XII intact bilaterally Psych mental status grossly normal NST FHR Rate Baby A Baseline: 155 Variability:: Moderate Accelerations:: 15 x 15 Decelerations:: None NST Reactive:: Yes FHR Category:: Category I Uterine Activity:: None Assessment & Plan (1) 37 or more weeks gestation of : (2) History of delivery, antepartum: (3) Leakage of amniotic fluid: PLAN: Plan ROM plus - NEGATIVE Cat. 1 tracing, NST reactive Repeat C/S already scheduled D/C home with follow up in office
== END 2023-09-08 16:15 | disposition home or self-care (01) ==
LOC: WPOUT 15:21 → WP 15:22
PROVIDERS: PCP Nurse Practitioner Family; Visit Provider Advanced Practice Midwife
DX: O42.92 Full-term premature rupture of membranes, unspecified as to length of time between rupture and onset of labor (principal); Z3A.37 37 weeks gestation of pregnancy
CPT/HCPCS: 59025; 59050; 84112; 99221; G0378

== ENCOUNTER 2023-09-21 09:27 | Inpatient (IN) | payer MEDICAID, SELFPAY ==
--- NOTE | 2023-09-14 11:21 | HP.PCM_ITS ---
History and Physical Date of Admission: 09/19/23 HPI: The patient is a 22 year old female presenting for pre-operative visit. She is scheduled for , for 39 weeks, h/o previous c/s on 09/19/23. Procedure discussed along with risks, benefits and complications. Other alternatives discussed for management. Consent form signed? Yes. ? ? PAST MEDICAL HISTORY PAST MEDICAL HISTORY Diagnosis Date ? Anemia ? ? Anxiety and depression ? ? History of multiple miscarriages ? ? Miscarriage ? ? Tachycardia ? ? ? PAST SURGICAL HISTORY PAST SURGICAL HISTORY Procedure Laterality Date ? DELIVERY ONLY ? ? ? HSG ? 07/18/2021 ? Dr Cathleen Baker ? MANUAL VACUUM ASPIRATION ? 07/28/2022 ? in office [facility] for missed ab ? MANUAL VACUUM ASPIRATION ? 11/20/2022 ? in office [facility] for missed ab ? ? ? CURRENT MEDICATIONS Current Outpatient Medications Medication Sig Dispense Refill ? prental multivitamin 27 mg iron- 800 mcg tablet Take 1 tablet by mouth once daily. 30 tablet 12 ? No current facility-administered medications for this visit. ? ? ALLERGIES: Bactrim [Sulfamethoxazole-Trimethoprim], Lavender, and Pork Derived ( Porcine) ? PERSONAL HISTORY: SOCIAL HISTORY Social History ? Tobacco Use ? Smoking status: Former ? ? Years: 7 ? ? Types: Cigarettes ? ? Quit date: 01/23/2023 ? ? Years since quittin.6 ? Smokeless tobacco: Never Vaping Use ? Vaping Use: current everyday user ? Start date: 09/24/2022 ? Substances: Nicotine, Flavoring Substance Use Topics ? Alcohol use: Not Currently ? ? Comment: Occasionally ? Drug use: Never ? FAMILY HISTORY: FAMILY HISTORY FAMILY HISTORY Problem Relation Age of Onset ? Asthma Mother ? ? No Known Problems Father ? ? other (lung disease) Sister ? ? No Known Problems Sister ? ? No Known Problems Brother ? ? No Known Problems Brother ? ? No Known Problems Brother ? ? No Known Problems Brother ? ? No Known Problems Brother ? ? other (stomach cancer) Maternal Grandmother ? ? other (bone cancer) Maternal Grandfather ? ? Hyperlipidemia Paternal Grandmother ? ? No Known Problems Paternal Grandfather ? ? No Known Problems Daughter ? ? ? REVIEW OF SYMPTOMS: GENERAL: denies fevers or chills ENDOCRINOLOGY: has not been on steroids Cardiology : denies palpitations or chest pain Respiratory: denies SOB or cough Hematology: denies history of prolonged bleeding or easy bruising or VTE Allergy: Denies history of personal or family history of allergy to anesthesia ? PHYSICAL EXAMINATION: ? VITALS: Blood pressure 108/68, weight 188 lb (85.3 kg), last menstrual period 0 11/15/2022. ? GENERAL: The patient is well nourished, well hydrated in no acute distress. , The patient is oriented to time, place, and person. NECK: Supple. No lynphadenopathy, normal thyroid, no thyromegaly. LUNGS: Clear to auscultation bilaterally. no wheezes, rhonchi or rales HEART: Regular rate and rhythm, Normal heart sounds, and No murmurs or gallops abd- soft, nontender gravid ext- trace edema, symmetrical ? IMPRESSION: Estimated Date of Delivery: 09/28/23 w/ h/o9 previous c/s ? PLAN: The risks/benefits/alternatives and personal involved for the planned repeat c/s were reviewed with the patient. Her questions were answered to her satisfaction and she desires to proceed. Consent was signed. I reviewed with her postop instructions and expectations. ? ? I have reviewed and updated past medical and surgical history, medications and allergies Assessment & Plan Assessment/Plan (1) History of delivery, antepartum: (2) 39 weeks gestation of :
[2023-09-21] VITALS (22 sets, daily range): BP systolic 91–127; BP diastolic 48–82; PULSE 57–95; RESP 12–18; TEMP 35.9–36.7; O2SAT 95–100; BMI 31.5
[2023-09-21] MEDS: Lactated Ringers 1,000 ML 999 ML IV (09:50)
[2023-09-21 10:04] LABS: Absolute Lymphocyte Count 2.23 X10^3/uL (0.83-4.51); Absolute Neutrophil Count 8.3 X10^3/uL (2.0-7.7); Basophil# 0.03 X10^3/uL; Basophil% 0.3 % (0-1); Eosinophil# 0.27 X10^3/uL; Eosinophils% 2.4 % (0-5); Hematocrit 34.6 % (37-47); Hemoglobin 11.2 g/dL (12.0-15.0); Lymphocyte # 2.23 X10^3/ul (0.83-4.51); Lymphocyte % 19.6 % (19-41); Mean Corp Hgb Conc 32.4 g/dL (32-36); Mean Corpuscular Hgb 29.2 pg (27.0-32.0); Mean Corpuscular Volume 90.3 fL (81-99); Monocyte# 0.59 X10^3/uL; Monocyte% 5.2 % (0-10); NRBC Flagged by Analyzer 0 % (0-5); Neutrophil # 8.25 X10^3/uL (2.7-7.7); Neutrophil % 72.2 % (47-70); Platelet Count 307 K/mm3 (150-450); RBC Distribution Width SD 42.5 fl (35.1-43.9); Red Blood Count 3.83 M/mm3 (4.2-5.4); White Blood Count 11.4 K/mm3 (4.4-11.0)
[2023-09-21 10:38] LABS: Syphilis Antibodies Non-reactive
[2023-09-21] MEDS: Acetaminophen 500 MG Tablet 1000 MG PO ×3 (10:50→23:16)
[2023-09-21] MEDS: Lactated Ringers 1,000 ML 150 ML IV (10:51)
[2023-09-21] MEDS: Sodium Citrate/Citric Acid 30 ML UDC PO (11:33)
[2023-09-21] MEDS: Cefazolin 2 GM in 0.9% Normal Saline (100mL Bag) 100 ML IV (11:48)
--- NOTE | 2023-09-21 12:00 | OP.PCM_ITS ---
Assessment & Plan (1) History of delivery, antepartum: (2) 39 weeks gestation of : Maternal Data Information BLANCA Calculator Estimated Delivery Date Method Current WG Current Estimate 09/29/23 Manual 38w 6d Final BLANCA: 09/28/23 Gestational age: 39 0/7 Details Operative Information Date of Procedure: 09/21/23 Pre-Operative Diagnosis: 39 weeks , h/o previous c/s Post-Operative Diagnosis: same Indications for : Repeat Elective Classification: Scheduled Procedure Type: low transverse behavioral health care coordinator #1: Stephenie Villegas behavioral health care coordinator #2: Jaya Heredia MS4 Type of Anesthesia: Spinal Anesthesiologist: Beau Kuo Special Medications: duramorph Antibiotic Given: Ancef 2 grams IV x1 Drain: Abreu to straight drain Estimated Blood Loss: 600 Fluids Replaced: 1200 Procedure Start Time: 12:14 Procedure Stop Time: 12:51 Time of Delivery: 12:19 Findings Description of Procedure: The patient was taken to the operating room. She was prepped and draped in the dorsal supine position with a leftward tilt. A Pfannenstiel skin incision was made approximately 2 cm above the symphysis pubis and carried through to underlying layer fascia with the scalpel. The fascia was incised incised in the midline and extended laterally with the Flynn scissors. The fascia was dissected off the rectus muscles with blunt and sharp dissection. The rectus muscles were in the midline and the peritoneum was entered bluntly. The peritoneal incision was stretched and the bladder blade was placed. The uterine incision was made in a low transverse fashion with the scalpel and extended superiorly and inferiorly with blunt dissection. The amniotic membranes were ruptured bluntly and clear amniotic fluid returned. The infant's head was brought to the incision in the flexed position and delivered without difficulty. The remainder of the infant was delivered with gentle traction and fundal pressure in the standard fashion. The mouth and nares were bulb suctioned. The cord was clamped and cut as the was stimulated. Cord clamping was delayed. The infant was handed off to the waiting nursing staff. The placenta was delivered with fundal massage and gentle traction in the standard fashion. The uterus was exteriorized and cleared of all clots and debris. The cervix was dilated with a ring forcep. The uterine incision was closed with #1 Vicryl in a running locked fashion. Several #1 Vicryl [id number] sutures were needed in the right side due to a bleeding sinus. The incision was examined and was found to be hemostatic. Some hemoblast was placed over the incision for some oozing from some peritoneal surfaces. The uterus was placed back into the peritoneal cavity and hemostasis was again confirmed. The rectus muscles were examined and any bleeding was Bovie cauter ized. The parietal peritoneum and rectus muscles were closed en bloc with an 0 Vicryl running suture. The surgical teams outer gloves were then changed. The rectus fascia was examined and any bleeding was Bovie cauterized and the rectus fascia was closed with 0 PDS suture in a running standard fashion. Some Johnson was placed over the rectus muscles and in the subcutaneous tissue. The subcutan eous tissue was examining and any bleeding was Bovie cauterized. The subcutaneous tissue was reapproximated with 3-0 Vicryl suture. The skin was closed in a subcuticular fashion by the DIRECTOR OF CATERING SALES with me present in the labor and delivery suite. I performed the remainder of the procedure with assistance. All sponge, lap, and needle counts were correct. The patient was taken to her room for recovery in a stable condition. Presentation: Positive for Vertex Amniotic Membrane Rupture Type: Artificial Amniotic Fluid Description: Clear Placental Delivery Description: Expressed Placenta Disposition: [facility] Specimen(s) Sent to Pathology: none Cord Vessel Description: 3 Vessels Cord Entanglement: Around neck x 1, loose Nuchal Cord Compression: Without compression Infant A Gender: Male (6 lb 1 oz Silviano) (1 minute): 8 (5 minute): 8 Delayed Cord Clamping: Yes Complications Complications: none
[2023-09-21] MEDS: Oxytocin 15 Units/NS 250ml 15 UNITS/250 ML IV.SOLN 83 UNITS IV (13:05)
[2023-09-21] MEDS: Ketorolac 30 MG/ML Syringe IV ×2 (13:45→19:55)
[2023-09-21] MEDS: Lactated Ringers 1,000 ML 100 ML IV (16:19)
--- NOTE | 2023-09-21 19:44 | NURSING ---
voided, did not measure
[2023-09-21] MEDS: Rho(D) Immune Globulin 300 MCG (1500 Unit) Syringe IV (23:17)
[2023-09-21] MEDS: 0.9% Saline Lock 10 ML Syringe IV (23:17)
[2023-09-22 00:39] VITALS: PULSE 54; O2SAT 98
[2023-09-22] MEDS: 0.9% Saline Lock 10 ML Syringe IV ×2 (02:22→08:38)
[2023-09-22] MEDS: Ketorolac 30 MG/ML Syringe IV ×2 (02:22→08:38)
[2023-09-22 04:05] VITALS: BP 109/63; PULSE 73; RESP 16; TEMP 36.2; O2SAT 98
[2023-09-22] MEDS: Acetaminophen 500 MG Tablet 1000 MG PO ×2 (05:29→11:04)
[2023-09-22 05:40] LABS: Hematocrit 27.8 % (37-47); Hemoglobin 8.9 g/dL (12.0-15.0); Mean Corpuscular Hgb 29.6 pg (27.0-32.0); Mean Corpuscular Volume 92.4 fL (81-99); Platelet Count 201 K/mm3 (150-450); RBC Distribution Width CV 13.1 % (11.6-14.6); RBC Distribution Width SD 43.8 fl (35.1-43.9); Red Blood Count 3.01 M/mm3 (4.2-5.4); White Blood Count 12.4 K/mm3 (4.4-11.0)
[2023-09-22 08:31] VITALS: BP 106/59; PULSE 70; RESP 16; TEMP 36.3
--- NOTE | 2023-09-22 09:12 | DS.PCM_ITS ---
Providers Date of Admission: 09/21/23 Primary Care Physician: ALVARO MeeksC Reason For Visit: REPEAT Diagnosis Discharge Diagnosis (1) History of delivery, antepartum: Status: Acute Code(s): O34.219 - Maternal care for unspecified type scar from previous delivery (2) 39 weeks gestation of : Status: Acute Code(s): Z3A.39 - 39 weeks gestation of Medications at Discharge Home Medications dyusmchk-fxl-Es-FA 1 mg tablet 1 tab PO DAILY 09/08/23 acetaminophen 500 mg tablet 1,000 mg (2 x 500 mg) PO Q6H #0 tabs 09/22/23 ibuprofen 600 mg tablet 600 mg PO Q6H #0 tabs 09/22/23 sennosides 8.6 mg-docusate sodium 50 mg tablet (Stool Softener-Stimulant Laxativ e) 1 - 2 tab PO DAILY #0 tabs 09/22/23 Hospital Course Operations section Procedures None Summary of Care Provided Minutes Spent on Discharge: 15 Hospital Course: Patient had scheduled, repeat section. Hospital course was uneventful. Physical Exam Narrative Patient seen at bedside. Denies pain. Ambulating and voiding without difficulty. Lochia is minimal. Passing flatus. Denies headache, dizziness, SOB, or CP. Patient requesting discharge home at 24 hours. Const alert and no apparent distress General Appearance: cooperative and comfortable Exam Limitations: no limitations HEENT normocephalic Eyes General Eye: normal appearance of both eyes Neck full ROM General: normal visual inspection Chest Chest: symmetrical chest wall rise Resp normal respiratory effort and normal air movement Effort and Inspection: symmetric chest movement Auscultation: clear to auscultation bilaterally Cardio regular rate and regular rhythm GI normal to inspection, nondistended, normoactive bowel sounds Back/Spine normal ROM Extremity full ROM and no calf tenderness General Extremity: normal exam except as noted Skin no rashes or lesions noted Neuro CN's II-XII intact bilaterally Psych mental status grossly normal Weight / BMI Weight Weight: 189 lb 9.6 oz Body Mass Index (BMI) 31.5 ABG / Lab / Microbiology Data 09/22/23 05:30 Laboratory: Laboratory Results - last 24 hr 09/21/23 09:50: WBC 11.4 H, RBC 3.83 L, Hgb 11.2 L, Hct 34.6 L, MCV 90.3, MCH 29.2, MCHC 32.4, RDW Std Deviation 42.5, RDW Coeff of Atilio 13.0, Plt Count 307, MPV 10.0, Immature Gran % (Auto) 0.300, Neut % (Auto) 72.2 H, Lymph % (Auto) 19.6, [place] % (Auto) 5.2, Eos % (Auto) 2.4, Baso % (Auto) 0.3, Absolute Neuts (auto) 8.3 H, Absolute Lymphs (auto) 2.23, Nucleated RBC % 0, Syphilis Total Ab Non-reactive, Blood Type A NEGATIVE, Antibody Screen NEGATIVE 09/21/23 15:10: Screen NEGATIVE, Baby's Blood Type O POSITIVE, Baby's JEAN NEGATIVE 09/22/23 05:30: WBC 12.4 H, RBC 3.01 L, Hgb 8.9 L, Hct 27.8 L, MCV 92.4, MCH 29.6, MCHC 32.0, RDW Std Deviation 43.8, RDW Coeff of Atilio 13.1, Plt Count 201, MPV 10.0 D/C Instructions Discharge Diet: No restrictions May resume sexual activity in: 6-8 weeks Weight Bearing Status: Weight bearing as tolerated Lifting Restrictions: 20 lbs Call your doctor if your incision/area has: Continuous Slow Oozing, Increased Pain/ Swelling, Increased Redness, Foul Smelling Discharge and Swelling at the incision site Call your doctor if you observe: Fever of 101 or Higher, Inability to urinate, Using more than 1 pad per hour, Shortness of breath, Chest pain, Calf discomfort and Uncontrolled pain Remove Dressing in: 5 days Cleanse incision/area with: Soap & Water and Keep Dressing Clean & Dry When: 1 week in office for incision check or sooner if needed 6 weeks Meaningful Use Info Meaningful Use Meaningful Use Diagnoses (Choose all that apply): None applicable Ischemic Stroke Statin Dosing Therapy Reference: STATIN DOSE THERAPY REFERENCE: * Patients > 75 years receive moderate or high dose statin therapy. * Patients 75 years or YOUNGER should receive HIGH intensity statin dose unless contraindicated. You will be required to document reason for non-treatment if statin daily dose does not meet guidelines. HIGH DOSE STATIN THERAPY DAILY Atorvastatin > than or = to 40 mg Rosuvastatin > than or = to 20 mg Amlodipine + Atorvastatin > than or = to 2.5/40 mg Ezetimibe + Simvastatin 10/80 mg Simvastatin 80mg Discharge Plan Admission Admit Date/Time: 09/21/23 09:27 Primary Reason for Your Visit: Repeat C/S Attending Provider: Gilma Vicente Primary Care Provider: Kenya Mitchell NP Discharge Orders/Prescriptions Prescriptions: New sennosides-docusate sodium [Stool Softener-Stimulant Laxat] 8.6-50 mg Tablet 1 - 2 tab PO DAILY Qty: 0 0RF acetaminophen 500 mg Tablet 1,000 mg PO Q6H Qty: 0 0RF ibuprofen 600 mg Tablet 600 mg PO Q6H Qty: 0 0RF Continued bsjltkmf-eer-Bh-FA 1 mg tablet 1 tab PO DAILY Discontinued hydrocodone-acetaminophen [hydrocodone-acetaminophen] 5-325 mg tablet 1 tab PO Q6H PRN PRN (Reason: Pain) 4 Days Qty: 16 0RF Hold Instructions: Conflicting Appointment Referrals / Follow Up: Manjula Corea CNM [Med Staff - [facility] Practice Prof] - Kenya Mitchell NP, [employer]ENT-C [Primary Care Provider] - Disposition Disposition (needs filled in before D/C Order can be placed): Home, Self Care
[2023-09-22] MEDS: Senna/Docusate Sodium 1 Tablet PO (11:04)
[2023-09-22 13:15] VITALS: BP 107/67; PULSE 70; RESP 16; TEMP 36.3
== END 2023-09-22 13:25 | disposition home or self-care (01) | DRG 540 ==
PROVIDERS: Admitting Provider Obstetrics & Gynecology; PCP Nurse Practitioner Family; Visit Provider Obstetrics & Gynecology
PROC: 10D00Z1 Extraction of Products of Conception, Low, Open Approach (ICD-10-PCS; CPT 59514; principal; 2023-09-21 11:45)
DX: O34.219 Maternal care for unspecified type scar from previous cesarean delivery (principal); O26.23 Pregnancy care for patient with recurrent pregnancy loss, third trimester; F17.290 Nicotine dependence, other tobacco product, uncomplicated; O69.81X0 Labor and delivery complicated by cord around neck, without compression, not applicable or unspecified; O99.334 Smoking (tobacco) complicating childbirth; Z37.0 Single live birth; Z3A.39 39 weeks gestation of pregnancy; Z87.59 Personal history of other complications of pregnancy, childbirth and the puerperium
CPT/HCPCS: 59025; 59050; 85025; 85027; 85461; 86780; 86850; 86900; 86901; 90384; 99221; J7120; A4216; G0378; J2405; J2790; J2791

== ENCOUNTER 2024-01-28 06:48 | Emergency (ER) | payer MEDICAID, SELFPAY ==
[2024-01-28 06:49] VITALS: BP 126/68; PULSE 119; RESP 16; TEMP 36.6; O2SAT 97; BMI 30.2
--- NOTE | 2024-01-28 07:18 | RAD_ITS ---
INDICATION: COUGH EXAMINATION/TECHNIQUE: X-RAY - XR Chest 2 Views COMPARISON: 09/17/2018 FINDINGS: LINES/DEVICES: None. LUNGS: No consolidation. No pneumothorax. MEDIASTINUM: Unremarkable. CARDIAC SILHOUETTE: Not enlarged. BONES AND SOFT TISSUES: No acute abnormalities. RAD/Chest PA and Lateral IMPRESSION: No evidence of active intrathoracic disease. Electronically Signed: Penny Bowling MD at 8:01 EDT ,
--- NOTE | 2024-01-28 07:19 | EDS_ITS ---
HPI History of Present Illness Chief Complaint: Cold Sx Informant: patient Narrative Narrative: 23-year-old female presenting to the emergency room with tightness in her chest. Patient states that last night she had a fever of 101. She had Tylenol around 0530 this morning. Patient notes some rhinorrhea and a nonproductive cough. Patient describes a tightness in her lower chest that goes in towards her sides and into her back. It is worse with certain positions. No rashes no vomiting or diarrhea. She denies any leg swelling. No DVT or PE history. Patient notes no sick contacts the children are doing well at home. No sore throat. She denies any history of asthma or chronic medical conditions for which she takes medications. [facility] Medical History Depression Bulimia 39 weeks gestation of Home Medications ?Medication ?Instructions ?Recorded ?Last Taken ?Type NK 01/28/24 Unknown History Allergy/AdvReac Type Severity Reaction Status Date / Time lavender (Lavandula Allergy Hives Verified 01/28/24 06:49 angustifolia) sulfamethoxazole (From Allergy Vomiting Verified 01/28/24 06:49 Bactrim) trimethoprim (From Bactrim) Allergy Vomiting Verified 01/28/24 06:49 Surgical History History of surgery Previous section History of delivery, antepartum Social History Smoking Status: Current every day smoker tobacco type: e-cigarettes ROS ROS ED Constitutional Constitutional ED: Reports chills, fever(s) and sweats; Denies weight loss Eyes Eyes: Denies change in vision or diplopia ENT ENT ED: Reports rhinorrhea; Denies ear pain or sore throat Cardiovascular Cardiovascular: Reports chest pain; Denies orthopnea, palpitations or racing heartbeat Respiratory/Chest Respiratory/Chest: Reports cough and dyspnea; Denies orthopnea Gastrointestinal Gastrointestinal: Denies abdominal pain, diarrhea, nausea or vomiting Genitourinary Genitourinary ED: Denies dysuria, hematuria or urinary frequency Musculoskeletal Musculoskeletal: Reports back pain; Denies arthralgias, myalgias or neck pain Integumentary Denies abscess or rash Neurologic Neurologic: Denies headache(s) or weakness Psychiatric Psychiatric: Denies anxiety, depression, suicidal ideation or suicidal thoughts Endocrine Endocrinology: Denies polydipsia, polyphagia or polyuria Allergic/Immunologic Allergic/Immunologic ED: Denies mouth swelling, tongue swelling or urticaria EXAM Physical Exam Const Vital Signs: 01/28/24 06:49 01/28/24 06:49 Temperature 97.9 F Temperature Source Oral Pulse Rate 119 H Respiratory Rate 16 Respiratory Pattern Normal Blood Pressure 126/68 H Blood Pressure Mean 87 Pulse Ox 97 Positive well nourished and well developed General Appearance ED: well developed and NAD HEENT Reports normocephalic, head/scalp atraumatic and moist mucous membranes HEENT Narrative: Mild turbinate edema. Eyes PERRL and EOMs intact bilaterally Neck no lymphadenopathy, supple and no JVD Resp normal respiratory effort and clear to auscultation bilaterally Cardio regular rate, regular rhythm and no murmurs GI normal to inspection, nondistended, normoactive bowel sounds and non-tender Palpation: soft Back/Spine no CVA tenderness and normal ROM Extremity normal to inspection General Extremety ED: Negative for edema General Extremity: Negative for edema Neuro oriented x3 and CN's II-XII intact bilaterally Sensorium / Orientation: alert Motor Exam: strength 5/5 throughout Psych mental status grossly normal Mood & Affect: Negative for depressed or tearful Skin no rashes or lesions noted and no wounds MDM MDM MDM Narrative Medical decision making narrative: Differential diagnosis includes but not limited to viral syndrom bronchitis bronchospasm chest wall pain My independent interpretation of the chest x-ray is no acute process. COVID influenza swab was obtained and is negative. At this point I do not think that the patient has pneumonia ACS or pulmonary embolism. She is sleeping on repeat examination. Think most likely has a viral illness. Patient received Motrin for pain. This appears to be positional in nature. Patient will be discharged home with supportive care follow-up if not improving History & Record Review Discussion w/independent historian: Patient Lab Data Attestation: I reviewed the patient's lab results. Radiography Diagnostic Testing: Clinical Impression(s) from Imaging Studies Chest X-Ray 01/28/24 07:18 IMPRESSION: No evidence of active intrathoracic disease. Electronically Signed: Penny Bowling MD at 8:01 EDT , Discharge Plan Triage Chief Complaint: Cold Sx ED Provider: Mark Ro Dx/Rx/DC Orders Clinical Impression: Acute viral syndrome, Chest pain Instructions: ED Viral Syndrome (Adult) Prescriptions: No Action NK Primary Care Provider: Kenya Mitchell NP Referrals: Kenya Mitchell NP, CHAIR [employer]CH [employer]KER-C [Primary Care Provider] - 1 Week if not improving Print Language: Stateless Disposition Disposition: Home, Self Care
[2024-01-28] MEDS: Ibuprofen 600 MG Tablet PO (07:57)
[2024-01-28 09:33] VITALS: BP 122/84; PULSE 94; RESP 16; TEMP 36.7; O2SAT 99
== END 2024-01-28 09:36 | disposition home or self-care (01) ==
PROVIDERS: Emergency Provider Emergency Medicine; PCP Nurse Practitioner Family; Visit Provider Emergency Medicine
DX: B34.9 Viral infection, unspecified (principal); R07.9 Chest pain, unspecified; F17.210 Nicotine dependence, cigarettes, uncomplicated; M54.9 Dorsalgia, unspecified; R05.9 Cough, unspecified; R06.00 Dyspnea, unspecified
CPT/HCPCS: 71046; 87631; 99282